=== PATIENT | female | born 1965 | race Caucasian/White ===

== ENCOUNTER 2018-11-23 01:10 | Inpatient (IN) | payer OTHER ==
[~2018-11-23] VITALS: Ht 182.9 cm; Wt 161.0 kg
[2018-11-23] VITALS (9 sets, daily range): BP systolic 105–148; BP diastolic 54–70
[~2018-11-23 01:10] MED LIST: ABILIFY 5 MG TAB5 M1 PO; ABILIFY PO; ABILIFY15 MG PO; ACETAMINOPHEN325 M1 PO; ACID CONTROL20 MG PO; ADVAIR 500-501 EACH; ADVAIR 500-501 EACH IH; ADVAIR 500-501 EACH INH; ALBUTEROL S5 MG/1 ML IH; ALBUTEROL2.5 MG/0.1; ALBUTEROL2.5 MG/31 INH; ALLEGRA180 MG PO; ALPRAZOLAM 0.50.5 MG PO; AMBIEN 10 MG TA10 MG PO; ATIVAN1 MG PO; AVINZA 30 MG CA30 MG PO; AZITHROMYCIN 6600 M1 PO; BISACODYL SUPP10 MG RE; CILOSTAZOL 100100 MG PO; CLONIDINE0.1 PO; COLACE100 MG PO; COUMADIN 10MG T10 M1 PO; COUMADIN 5 MG TA5 M1 PO; COUMADIN PO; CYMBALTA30 MG PO; DAZIDOX10 MG PO; DESYREL150 MG PO; DILTIAZEM HCL60 MG PO; DULCOLAX; FLONASE 0.05%50 MCG NS; FUROSEMIDE 40 M40 M1 PO; FUROSEMIDE 80 M80 M1 PO; GLUCOPHAGE1000 MG PO; GLUCOPHAGE500 MG PO; GLYCOLAX POWDER17 G1 PO; GLYCOLAX POWDER17 GM PO; HYDROCODON-ACE1 EAC7 PO; JANTOVEN5 MG PO; K-DUR10 MEQ PO; KADIAN30 MG PO; KEPPRA1000 MG PO; KLOR-CON 10 ER10 MEQ PO; LANOXIN 0.250.25 M1 PO; LASIX 40 MG TAB40 M1 GT; LASIX 40 MG TAB40 MG PO; LASIX 80 MG TAB80 M1 PO; LEVOTHROID 00.075 M1 PO; LEVOTHROID150 MCG PO; LEVOTHROID200 MCG PO; LEVOTHYROXINE0.2 M1 PO; LIDODERM 5%1 PATC1 TOP; LOPRESSOR 12.12.5 MG PO; MACROBID 100 M100 M1 PO; MOM; MUCINEX TA600 MG/TA1 PO; NAMENDA 5 MG TAB5 M1 PO; NEURONTIN600 MG PO; NITROGLYCERIN0.4 MG SL; NITROQUICK0.4 MG SL; NYSTATIN 1100000 U/M; OXYCODONE HCL30 MG PO; OXYCODONE HCL5 M1 PO; OXYCONTIN CR 1010 M1 PO; PROAIR HFA8.5 GM IH; PROMETHAZINE HC25 M1 PO; PROTONIX40 M2 PO; PROVIGIL 100 M100 MG PO; QUETIAPINE FUM300 MG PO; SANTYL OINTMENT30 G1 TP; SENNA; SENNA PLUS 8.61 EACH PO; SENNA S TABLET1 EACH PO; SENNA-S TABLET1 EACH PO; SEROQUEL 25 MG25 MG PO; SEROQUEL 50 MG50 MG PO; SEROQUEL XR50 MG PO; SINGULAIR 10 MG10 M1 PO; SPIRIVA INH; VENTOLIN HFA INH8 GM; VENTOLIN HFA INH8 GM IH; XANAX 0.5 MG0.5 M1 PO; XANAX 0.5 MG0.5 MG PO; ZOLOFT 50 MG TA50 M1 PO; ZPAK PO; ZUPLENZ4 MG PO
[2018-11-23 01:47] LABS: ABSOLUTE NEUTROPHILS 12.2 thou/uL (1.4-8.2); BASOPHILS 0.1 % (0.0-2.0); EOSINOPHILS 0.6 % (0.0-3.0); HEMATOCRIT 34.5 % (37.0-47.0); HEMOGLOBIN 11.1 gm/dL (12.0-15.0); LYMPHOCYTES 6.2 % (24.0-44.0); MCH 27.6 pg (26.0-34.0); MCHC 32.1 g/dL (28.0-37.0); MONOCYTES 6.3 % (1.0-8.0); PLATELET COUNT 209 thou/uL (150-400); POLYS 86.8 % (36.0-66.0); RBC 4.02 mil/uL (4.20-5.00); RDW 15.2 % (10.5-14.5); WBC 14.1 thou/uL (4.0-11.0)
[2018-11-23 01:54] LABS: ANION GAP 7 mmol/L (7-16); BUN 9 mg/dL (7-18); CHLORIDE 91 mmol/L (98-107); CO2 34 mmol/L (21-32); CREATININE 0.8 mg/dL (0.6-1.0); GLUCOSE 174 mg/dL (74-106); POTASSIUM 3.6 mmol/L (3.5-5.1); SODIUM 132 mmol/L (136-145)
[2018-11-23 01:57] LABS: BE(vivo) 4.7 mmol/L (-2 to +3); PCO2 60.9 mmHg (35.0-45.0); PO2 73.6 mmHg (80.0-100.0); pH 7.338 (7.360-7.450); sO2 93.6 % (92.0-98.0)
[2018-11-23 02:01] LABS: APTT 34.6 Seconds (24.5-32.8); INR 1.1; PROTIME 11.1 Seconds (9.3-11.4)
[2018-11-23 02:04] LABS: ALBUMIN 2.9 g/dL (3.4-5.0); MAGNESIUM 1.3 mg/dL (1.8-2.4); SGOT 22 U/L (15-37); SGPT 19 U/L (30-65); TOTAL BILIRUBIN 0.4 mg/dL (<0.1-1.0); TOTAL PROTEIN 8.1 g/dL (6.4-8.2); TROPONIN-I <0.06 ng/mL (<0.06)
[2018-11-23] MEDS ORDERED: ADVAIR HFA 230M12 GM INH (05:09)
[2018-11-23] MEDS ORDERED: ASPIR 8181 MG PO (05:10)
[2018-11-23] MEDS ORDERED: SPIRONOLACTONE25 M1 PO (05:10)
[2018-11-23] MEDS ORDERED: LIORESAL 10 MG10 MG (05:12)
[2018-11-23] MEDS ORDERED: CLONAZEPAM 0.50.5 M1 PO (05:12)
[2018-11-23] MEDS ORDERED: CLONAZEPAM 1 MG1 M1 PO (05:13)
[2018-11-23] MEDS ORDERED: MULTAQ 400 MG400 MG PO (05:14)
[2018-11-23] MEDS ORDERED: LAXATIVE SUPPOS10 MG RECTAL (05:16)
[2018-11-23] MEDS ORDERED: FOLIC ACID1 MG PO (05:20)
[2018-11-23] MEDS ORDERED: ROBITUSSIN100 MG/53 PO (05:21)
[2018-11-23] MEDS ORDERED: NORCO 5-325 TA1 EAC1 PO (05:22)
[2018-11-23] MEDS ORDERED: IRON325 PO (05:24)
[2018-11-23] MEDS ORDERED: KEPPRA1000 MG PO (05:26)
[2018-11-23] MEDS ORDERED: IPRAT-ALBUT 0.5-3 ML IH (05:26)
[2018-11-23] MEDS ORDERED: LEXAPRO20 MG PO (05:27)
[2018-11-23] MEDS ORDERED: SYNTHROID25 MC1 PO (05:27)
[2018-11-23] MEDS ORDERED: MELATONIN3 MG PO (05:28)
[2018-11-23] MEDS ORDERED: CLARITIN10 MG PO (05:28)
[2018-11-23] MEDS ORDERED: LOPRESSOR25 PO (05:29)
[2018-11-23] MEDS ORDERED: MIRALAX17 GM PO (05:29)
[2018-11-23] MEDS ORDERED: MS CONTIN 30 MG30 MG PO (05:30)
[2018-11-23] MEDS ORDERED: CENTRUM SILVER1 EAC4 PO (05:30)
[2018-11-23] MEDS ORDERED: OXYBUTYNIN ER 55 M2 PO (05:31)
[2018-11-23] MEDS ORDERED: KLOR-CON20 ME1 PO (05:32)
[2018-11-23] MEDS ORDERED: PRADAXA150 MG PO (05:33)
[2018-11-23] MEDS ORDERED: PRILOSEC OTC20 MG PO (05:33)
[2018-11-23] MEDS ORDERED: LYRICA 75 MG CA75 MG PO (05:34)
[2018-11-23] MEDS ORDERED: REGLAN 10 MG TA10 MG PO (05:35)
[2018-11-23] MEDS ORDERED: SENNA PLUS TAB1 EACH PO (05:36)
[2018-11-23] MEDS ORDERED: SODIUM CHLORIDE1 G2 PO (05:37)
[2018-11-23] MEDS ORDERED: TRIGLIDE160 M1 PO (05:38)
[2018-11-23] MEDS ORDERED: ONDANSETRON HCL4 M2 PO (05:39)
[2018-11-23] MEDS ORDERED: ZYPREXA5 MG PO (05:40)
--- NOTE | 2018-11-23 06:06 | NUR ---
PT AARIVED UNIT AT ABOUT 0400. PT A/OX4, FORGETFUL AND VERY SLEEPY. VITAL SIGNS STABLE, ASSESSMENT CHARTED. ON 8L O2. ASSESSMENT DONE, ADMISSION STARTED, PT VERY SLEEPY AND COULD HARDLY STAY AWAKE TO ANSWER ADMISSION QUESTIONS. MEDICATION RECONCILLIATION DONE. FREQUENT CHECKS, FALL PRECAUTIONS MAINTAINED FOR REST OF SHIFT. WILL CONTINUE TO MONITOR.
[2018-11-23 08:08] LABS: URINE BILIRUBIN NEGATIVE (Negative); URINE BLOOD NEGATIVE (Negative); URINE CLARITY CLEAR; URINE COLOR YELLOW; URINE GLUCOSE-RANDOM* NEGATIVE (Negative); URINE KETONES NEGATIVE (Negative); URINE NITRITE-REFLEX NEGATIVE (Negative); URINE PROTEIN (DIPSTICK) NEGATIVE (Negative); URINE SPECIFIC GRAVITY <= 1.005 (1.005-1.035); URINE UROBILINOGEN 0.2 E.U./dl (0.2-1.0)
[2018-11-23 08:11] LABS: URINE LEUKOCYTES-REFLEX 1+ (Negative)
[2018-11-23 08:14] LABS: CASTS None Seen /LPF (None Seen); CRYSTALS None Seen /LPF (None Seen); SQUAMOUS 0-3 Few /LPF (0-3); URINE WBC-REFLEX 0-5 Rare /HPF (0-5)
[2018-11-23 08:15] LABS: BACTERIA-REFLEX None Seen /HPF (None Seen); URINE RBC None Seen /HPF (0-2); WBC CLUMPS Rare (None Seen)
--- NOTE | 2018-11-23 10:47 | NUR ---
CONSULTED TO PLACE A PICC FOR A PATIENT NEEDING IV ANTIBIOTICS, UNKNOWN IF IT WILL BE GEOSPATIAL INFORMATION SCIENTIST. ADMITTED WITH RESPIRATORY FAILURE AND SEPSIS. ORDER AND CONSENT NOTED. THE SALES REPRESENTATIVE [employer] OBTAINED WRITTEN CONSENT.THIS NURSE ALSO DISCUSSED THE PICC PLACEMENT WELL BENIFITS AND RISKS FOR DVT AND INFECTION WITH THE PATIENT AND SHE VERBALIZED UNDERSTANDING. THE RIGHT UPPER ARM CEPHALIC WAS WIDLEY PATENT. A #4F SINGLE LUMEN POWER PICC WAS PLACED PER HOSPITAL POLICY AFTER A BEDSIDE TIMOUT WAS COMPLETED. THE PICC WAS TRIMMED TO 50 CM AND ADVANCED WITHOUT DIFFICULTY. A STAT CHEST XRAY NOTED THE PICC TIP WAS DIFFICULT TO VISUALIZE AND SUGGESTED REPOSITIONING THE PICC. PICC WITHDREW 2CM SUGGESTED AND A 2ND CHEST XRAY WAS OBTAINED FOR TIP VERIFICATION
--- NOTE | 2018-11-23 16:48 | NUR ---
PT CARE ASSUMED APPROX 0700. PT DROWSY BUT ORIENTTED X4. REPORTS SOA AND PAIN. PAIN IS CHRONIC TO LOWER BACK. PT ALWAYS RATES PAIN 10/10 WITH ZERO RELIEF. REPORTS SOA AT THIS TIME AND RECEIVING PRN BREATHING TREATMENT. WILL F/U. PT ALSO REPORTS CHEST DISCOMFORT THAT WORSENS WITH DEEP BREATHING. PT EDUCATED ON PNEUMONIA DISEASE PROCESS AND SYMPTOMS THAT ACCOMPANY THAT DIAGNOSIS. DR LOVE NOTIFIED. VSS. BS WNL. PT REPORTS TO NURSING THAT SHE HAS A H/O CHF. THIS IS NOT NOTED TO H&P. DR LOVE NOTIFIED OF THAT WELL SINCE PT REPORTS SOA. IVF AND MULTIPLE IV ABX REMAINS TO POC. DR LOVE GAVE ORDERS TO STOP IVF AND CHECK XRAY IN AM. PT HAS NOT MOBILIZED THIS SHIFT. SLEPT MOST OF DAY. SHE HAS BEEN EASILY AROUSABLE. DROWSINESS MOST LIKEY DUE TO IV MORPHINE MANAGING PAIN PRIOR TO HOME MEDS BEING ORDERED. WILL F/U PT FOR EFFECTIVENESS OF BREATHING TREATMENT. CLINICALLY STABLE AT THIS TIME.
[2018-11-24] VITALS (7 sets, daily range): BP systolic 105–121; BP diastolic 61–69
[2018-11-24 06:04] LABS: HEMATOCRIT 30.6 % (37.0-47.0); HEMOGLOBIN 9.9 gm/dL (12.0-15.0); MCH 27.8 pg (26.0-34.0); MCHC 32.4 g/dL (28.0-37.0); MCV 85.6 fL (80.0-100.0); RBC 3.58 mil/uL (4.20-5.00)
[2018-11-24 06:17] LABS: ANION GAP 4 mmol/L (7-16); BUN 9 mg/dL (7-18); CHLORIDE 101 mmol/L (98-107); CO2 35 mmol/L (21-32); CREATININE 0.8 mg/dL (0.6-1.0); GLUCOSE 110 mg/dL (74-106); POTASSIUM 4.6 mmol/L (3.5-5.1); SODIUM 140 mmol/L (136-145); TROPONIN-I <0.06 ng/mL (<0.06)
--- NOTE | 2018-11-24 06:24 | NUR ---
PT RESTING IN BED. HAS BEEN SLEEPING MAJORITY OF NIGHT, DROWSY BUT ARROUSABLE. PT STATED THAT SHE HASN'T SLEPT IN LIKE TWO DAYS. PT REMAINS ON 5L NC. PT C/O CHRONIC PAIN GETTING SCHEDULED PAIN MEDS WELL PRN. PT SR W/1ST AVB. AM LABS PENDING REVIEW.
--- NOTE | 2018-11-24 14:55 | HC ---
[facility] [place] [address] [place] [address] CONSULTATION Name: SABRINA RICKS Room #: 215-P ADM IN M.R.#: [id number] Admission: 11/23/18 Attend Phys: Maricarmen Rosas Discharge: Date of : 61 Report #: [id number] THIS REPORT FOR: //name// CC: FAM unknown Maricarmen Rosas PULMONARY CONSULTATION REFERRING PHYSICIAN: Dr. Rosas. REASON FOR REFERRAL: Hypoxia, possible pneumonia. HISTORY OF PRESENT ILLNESS: The patient is a 53-year-old white female who was brought to the ED with coughing, hypoxia. She was admitted for possible pneumonia. The patient is a resident of the [facility]. She was in her usual state of health until the day prior to presentation where she has complained of cough, desaturation. Because of hypoxia, the patient was brought to the ED. Chest x-ray shows increasing possible left hilar, upper lobe infiltrates. The patient was admitted for pneumonia. She is not a good historian. She is somewhat drowsy, arousable. She denies any recent chest pain, productive cough, night sweats or chills. PAST MEDICAL HISTORY: Notable for COPD, chronic bronchitis, anemia, history of dysrhythmias, chronic pain, on chronic narcotics, seizure disorder, depression, peptic ulcer disease, chronic kidney disease, diabetes mellitus, history of depression, and hypothyroidism. PAST SURGICAL HISTORY: Status post right BKA. ALLERGIES: AMINOGLYCOSIDE, CLINDAMYCIN, PENICILLIN, VANCOMYCIN, FLUOROQUINOLONES, reactions not specified. MEDICATIONS: List from the jail are reviewed, is in the MAR. This include hydrocodone 5/325 mg every 12 hours p.r.n., Tylenol p.r.n., Coumadin 5 mg once a day, Seroquel XR 50 mg once a day, Zoloft 50 mg once a day, Synthroid 0.2 mg once a day, Protonix 40 mg once a day, quetiapine fumarate 300 mg p.o. at bedtime, Advair 500/50 mcg one puff twice a day, cilostazol 100 mg p.o. b.i.d., Pepcid 20 mg p.o. b.i.d., Keppra 1000 mg p.o. b.i.d., metoprolol 12.5 mg p.o. b.i.d., Namenda 5 mg p.o. b.i.d., Neurontin 600 mg p.o. t.i.d., Colace, DuoNeb q. 6 hours, Zuplenz 4 mg p.o. t.i.d. p.r.n., albuterol MDI, and nystatin. FAMILY HISTORY: Noncontributory. [facility] [address] [place] [address] CONSULTATION Name: SABRINA RICKS Room #: 215-P ADM IN M.R.#: [id number] Admission: 11/23/18 Attend Phys: Maricarmen Rosas Discharge: Date of : 61 Report #: [id number] SOCIAL HISTORY: A [facility] jail. No recent tobacco or alcohol use. REVIEW OF SYSTEMS: Deferred as the patient is not able to answer questions at this time due to hypersomnolence. PHYSICAL EXAMINATION: GENERAL: She is arousable, in no distress. VITAL SIGNS: Temperature is 98 degrees Fahrenheit, pulse is 90, respiratory rate is 14, blood pressure 114/54 mmHg, saturation is 96%. HEENT: Normocephalic, atraumatic. NECK: Supple, without any lymphadenopathy or thyromegaly. CHEST: Breath sounds are distant, poor effort, no obvious rales or wheezes, air movements are decreased. CARDIOVASCULAR: Normal S1, S2. There are no murmurs or gallop. Pulses are 2+/4+ bilaterally. BREASTS: Deferred. ABDOMEN: Obese, soft, nontender, no organomegaly or masses felt. GENITOURINARY: Deferred. RECTAL: Deferred. EXTREMITIES: No cyanosis, clubbing; 1+ bilateral edema. LABORATORY DATA: Portable chest x-ray shows prominence of the left hilum, questionable left upper lobe infiltrates, left hemidiaphragm is elevated, lung volumes are decreased, increased pulmonary vascular markings. C-reactive proteins is 186. Troponin is normal. UA was unremarkable. Arterial blood gas revealed pH of 7.33, pCO2 of 60, pO2 of 73 on 6 liters of O2. Sodium 132, potassium 3.6, chloride 91, CO2 is 34, creatinine is 0.8. Liver function tests are grossly unremarkable. WBC 14,100. IMPRESSION: 1. History of chronic obstructive pulmonary disease, severity unknown, history of chronic bronchitis. 2. Prominent left hilum? Poor technique. The patient will need followup chest x-ray. If still abnormal, she will need a CT chest. 3. Morbid obesity, no past history of sleep-related breathing disorder. The patient does have risk for sleep apnea. Arterial blood gas also suggests chronic hypercapnic respiratory failure. Sleep evaluation is recommended when she is stable as an outpatient. 4. Chronic hypercapnic respiratory failure. She has been on 6 liters of O2. Etiology is not well defined, probably due to underlying chronic obstructive pulmonary disease, hypoventilation syndrome related to obesity, possibly related to obesity hypoventilation syndrome. 5. Chronic pain, on chronic narcotics, which is likely contributing to hypoventilation. [facility] [address] [place] [address] CONSULTATION Name: SABRINA RICKS Maria Del Carmen Room #: 215-P ADM IN M.R.#: [id number] Admission: 11/23/18 Attend Phys: Maricarmen Rosas Discharge: Date of : 61 Report #: [id number] 6. Seizure disorder. 7. History of depression. 8. Chronic kidney disease. 9. Chronic anticoagulation? Medication list Coumadin. RECOMMENDATION: Would recommend broad-spectrum antibiotics to cover for nosocomial infections. Infectious Disease has been consulted. We will continue bronchodilator therapy. Wean O2 for saturation 88-90%, given chronic hypercapnia. DVT and GI prophylaxis is recommended. She is already on Coumadin, reasons not specified. Dietary modification will be helpful in this patient. Thank you for this consultation. <ELECTRONICALLY SIGNED> By: Jose Tom MD 11/24/18 1455 1429 0142 Jose Tom MD /nt
--- NOTE | 2018-11-24 14:55 | HC ---
[facility] [place] [place] [address] [place] [address] CONSULTATION Name: SABRINA RICKS Room #: 215-P ADM IN M.R.#: [id number] Admission: 11/23/18 Attend Phys: Maricarmen Rosas Discharge: Date of : 61 Report #: [id number] THIS REPORT FOR: //name// CC: FAM unknown Maricarmen Rosas PULMONARY CONSULTATION REFERRING PHYSICIAN: Dr. Rosas. REASON FOR REFERRAL: Hypoxia. HISTORY OF PRESENT ILLNESS: The patient is a 53-year-old white female who was brought to the ED with hypoxia and cough. She has been admitted for possible pneumonia. A Pulmonary consultation was requested. The patient is a resident at the [facility]. She was in her usual state of health until one day prior to presentation, she complained of cough. She is normally on 6 liters of O2. She was noted to be more hypoxic than normal. For that reason, she was brought to the ED. Chest x-rays suggest possible infiltrates seen in the left upper lobe. The left hilum appears to be prominent. Presently, she is somnolent, arousable, not able to obtain good history. Otherwise, denies any recent chest pain, productive cough, night sweats or chills. PAST MEDICAL HISTORY: Include chronic pain, COPD, seizure disorder, depression, peptic ulcer disease, history of chronic kidney disease, diabetes mellitus type 2, hypothyroidism, anemia, history of dysrhythmias, status post right [id number] amputation. PAST SURGICAL HISTORY: As mentioned above. ALLERGIES: AMINOGLYCOSIDES, CLINDAMYCIN, PENICILLIN, VANCOMYCIN, MOXIFLOXACIN, REACTIONS UNSPECIFIED. MEDICATIONS: From the assisted are reviewed, this include Tylenol, hydrocodone 5/325 one to two tabs p.r.n., lorazepam 1 mg p.o. t.i.d., Coumadin 5 mg once a day. [facility] [address] [place] [address] CONSULTATION Name: SABRINA RICKS Room #: 215-P [facility] IN ..#: [id number] Admission: 11/23/18 Attend Phys: Maricarmen Rosas Discharge: Date of : 61 Report #: [id number] DICTATION ENDS HERE <ELECTRONICALLY SIGNED> By: Jose Tom MD 11/24/18 1455 1359 [id number] Jose Tom MD /nt
--- NOTE | 2018-11-24 16:19 | NUR ---
PT CARE ASSUMED APPROX 0700. PT ALERT AND ORIENTED X4. SLEEPING MOST OF SHIFT BUT EASILY AROUSABLE. VSS. BS WNL. TURNING Q2 HRS AND PRN. PT DENIES CHEST PAIN THIS SHIFT. CONTINUES TO REPORTS GEN PAIN -11/02. PT REPORTS ADEQUATE PAIN MANAGEMENT WITH CURRENT MEDS. CHRONIC SELBY PATENT. NO BM THIS SHIFT. LASIX GIVEN AND PT REPORTS GEN RELIEF. DENIES SOA. IV ABT REMAINS TO POC. PT TOLERATING POC AND DENIES QUESTIONS OR CONCERNS REGARDING POC. BED LEVEL EXERCISES DONE. NO DISTRESS NOTED.
[2018-11-25 00:35] VITALS: BP 126/64
--- NOTE | 2018-11-25 02:14 | NUR ---
ASSESSMENT CHARTED. VSS. PAIN CONTROLED WITH PRN AND SCHEDULED PAIN MEDS PER EMAR. 5 L N/C PRN BREATHING TREATMENTS LUNGS COARSE. ABX PER EMAR. PT REQUESTED PRN MELATONIN FOR SLEEP. SLEEPING WELL AT THIS TIME. WILL CONTINUE TO MONITOR AND WITH POC.
[2018-11-25 04:18] VITALS: BP 123/61
[2018-11-25 04:31] LABS: ABSOLUTE NEUTROPHILS 3.8 thou/uL (1.4-8.2); BASOPHILS 0.5 % (0.0-2.0); HEMATOCRIT 30.8 % (37.0-47.0); HEMOGLOBIN 10.1 gm/dL (12.0-15.0); LYMPHOCYTES 16.2 % (24.0-44.0); MCH 28.3 pg (26.0-34.0); MCHC 32.8 g/dL (28.0-37.0); MCV 86.3 fL (80.0-100.0); MONOCYTES 11.7 % (1.0-8.0); PLATELET COUNT 214 thou/uL (150-400); POLYS 66.6 % (36.0-66.0); RBC 3.57 mil/uL (4.20-5.00); RDW 14.9 % (10.5-14.5); WBC 5.8 thou/uL (4.0-11.0)
[2018-11-25 04:38] LABS: CALCIUM 9.4 mg/dL (8.5-10.1); CREATININE 0.8 mg/dL (0.6-1.0); POTASSIUM 4.5 mmol/L (3.5-5.1)
[2018-11-25 07:56] VITALS: BP 122/71
[2018-11-25 11:08] VITALS: BP 153/88
[2018-11-25 15:57] VITALS: BP 117/63
--- NOTE | 2018-11-25 17:17 | NUR ---
PT CARE ASSUMED APPROX 0700. PT DROWSY AND SLEEPS MOST OF SHIFT BUT EASILY AROUSABLE AND ORIENTEDX4. DENIES SOA. REPORTS 7-8 CHRONIC GEN PAIN. REPORTS ADEQUATE PAIN MANAGEMENT. VSS. BS WNL. AGREEABLE TO TURNING IN BED TWICE THIS SHIFT BUT ONLY STAYS IN TURN POSITION FOR SHORT TIME. PT EDUCATED ON POSSIBLE OUTCOMES OF NOT TURNING. PT REPORTS UNDERSTANDING SAID EDUCATION. NO CHANGES NOTED TO POC. PT TOLERATING POC. BED LEVEL EXERCISES DONE PERIODICALLY THIS SHIFT SINCE PT IS BEDBOUND. NO DISTRESS NOTED.
[2018-11-25 19:58] VITALS: BP 133/73
--- NOTE | 2018-11-26 03:46 | NUR ---
ASSESSMENT CHARTED. VSS. PT REQUEST PRN MELTONIN AND BACLOFEN PER EMAR. REFUSING Q2 TURNS STATED WILL LET ME KNOW WHEN SHE NEEDS HELP. 4 L NC. COARSE THROUGHOUT, SAME COMPARED TO PREVIOUS NIGHT. GOOD OUTPUT SELBY. SLEEPING WELL. NO COMPLAINTS. WILL CONTINUE TO MONITOR AND WITH POC.
[2018-11-26 04:01] VITALS: BP 128/70
[2018-11-26 07:42] VITALS: BP 108/73
--- NOTE | 2018-11-26 07:57 | EKG ---
[address] [address] ELECTROCARDIOGRAM REPORT Name: SABRINA RICKS Room #: 215-P ADM IN M.R.#: [id number] Admission: 11/23/18 Attend Phys: Hiren Huynh MD Discharge: Date of : 61 Report #: [id number] THIS REPORT FOR: //name// [facility] ED Test Date: 2018-11-23 Test Time: 01:14:52 Pat Name: SABRINA RICKS Department: Room: [facility] Gender: F Sprinkler Repair Technician: KVNG : 1965 Requested By: Calvin Zelaya Order Number: [id number] MD: Ramon Oshea Measurements Intervals [place] Rate: 145 P: 0 AR: 118 QRS: 78 QRSD: 103 T: 263 QT: 281 QTc: 437 Interpretive Statements Supraventricular tachycardia Repol abnrm, diffuse leads No previous ECGs available for comparison Electronically Signed On 11-26-2018 7:57:43 CDT by Ramon Oshea [email or web address] <ELECTRONICALLY SIGNED> By: Ramon Oshea MD, [facility] 11/26/18 0757 0114 0114 Ramon Oshea MD, FACC /EPI
[2018-11-26 09:24] LABS: ABSOLUTE NEUTROPHILS 3.1 thou/uL (1.4-8.2); BASOPHILS 0.8 % (0.0-2.0); EOSINOPHILS 5.7 % (0.0-3.0); HEMOGLOBIN 11.9 gm/dL (12.0-15.0); LYMPHOCYTES 18.1 % (24.0-44.0); MCH 29.2 pg (26.0-34.0); MCHC 34.1 g/dL (28.0-37.0); MCV 85.6 fL (80.0-100.0); MONOCYTES 10.5 % (1.0-8.0); PLATELET COUNT 235 thou/uL (150-400); POLYS 64.9 % (36.0-66.0); RBC 4.09 mil/uL (4.20-5.00); RDW 14.6 % (10.5-14.5); WBC 4.8 thou/uL (4.0-11.0)
[2018-11-26 09:37] LABS: CALCIUM 10.1 mg/dL (8.5-10.1); CREATININE 0.8 mg/dL (0.6-1.0); POTASSIUM 4.4 mmol/L (3.5-5.1)
[2018-11-26 12:11] VITALS: BP 131/72
[2018-11-26 12:35] LABS: BE(vivo) 11.4 mmol/L (-2 to +3); PO2 92.1 mmHg (80.0-100.0); pH 7.375 (7.360-7.450); sO2 96.6 % (92.0-98.0)
[2018-11-26 12:38] LABS: PCO2 68.2 mmHg (35.0-45.0)
--- NOTE | 2018-11-26 12:57 | 2DMMODE ---
[facility] [address] [place] [address] 2 D/M-MODE ECHOCARDIOGRAM Name: SABRINA RICKS Maria Del Carmen Room #: 215-P ADM IN .R.#: [id number] Admission: 11/23/18 Attend Phys: Hiren Huynh MD Discharge: Date of : 61 Date of Service: 11/26/18 1257 Report #: [id number] THIS REPORT FOR: //name// APPROVED REPORT Study performed: 11/26/2018 10:31:55 EXAM: Comprehensive 2D, Doppler, and color-flow Echocardiogram Patient Location: Bedside Room #: 215 Status: routine BSA: 2.74 HR: 91 bpm BP: 128/70 mmHg Rhythm: NSR Other Information Study Quality: Adequate Risk Factors: Cardiac Risk Factors: Hyperlipidemia, DM Indications COPD Chest Pain 2D Dimensions IVSd: 14.16 (7-11mm) LVOT Diam: 21.00 (18-24mm) LVDd: 47.27 mm PWd: 11.82 (7-11mm) Ascending Ao: 32.96 (22-36mm) LVDs: 37.82 (25-40mm) Aortic Root: 35.70 mm LV Single Plane 4CH: 44.55 % LV Single Plane 2CH: 43.03 % Biplane EF: 45.4 % Volumes Left Atrial Volume (Systole) Single Plane 4CH: 76.23 mL Single Plane 2CH: 58.90 mL LA ESV Index: 34.00 mL/m2 Aortic Valve AoV Peak Stephen.: 1.17 m/s AO Peak Gr.: 5.52 mmHg LVOT Max P.04 mmHg LVOT Max V: 0.87 m/s [facility] [address] [place] [address] 2 D/M-MODE ECHOCARDIOGRAM Name: SABRINA RICKS Maria Del Carmen Room #: 215-P [facility] [facility]#: [id number] Admission: 11/23/18 Attend Phys: Hiren Huynh MD Discharge: Date of : 61 Date of Service: 11/26/18 1257 Report #: [id number] ANASTASIA Vmax: 2.61 cm2 Mitral Valve E/A Ratio: 0.8 MV Decel. Time: 146.13 ms MV E Max Stephen.: 1.08 m/s MV A Stephen.: 1.38 m/s MV PHT: 42.38 ms IVRT: 76.12 ms TDI E/Lateral E': 12.00 E/Medial E': 18.00 Medial E' Stephen.: 0.06 m/s Lateral E' Stephen.: 0.09 m/s Pulmonary Valve PV Peak Stephen.: 1.03 m/s PV Peak Gr.: 4.27 mmHg Tricuspid Valve TR Peak Stephen.: 2.39 m/s RAP Estimate: 10.00 mmHg TR Peak Gr.: 22.79 mmHg PA Pressure: 33.00 mmHg Left Ventricle The left ventricle is normal size. Mild concentric left ventricular hypertrophy. Left ventricular systolic function is mildly decreased. LVEF is 45%. Mild diastolic dysfunction is present (impaired relaxation pattern). Right Ventricle Right ventricle is dilated. Atria The left atrium size is normal. Right atrium is dilated. Aortic Valve The aortic valve is normal in structure. No aortic regurgitation is present. There is no aortic valvular stenosis. Mitral Valve Mild mitral regurgitation. No evidence of mitral valve stenosis. Tricuspid Valve The tricuspid valve is normal in structure. Mild tricuspid regurgitation. Pulmonary artery pressure is 33 mmHg. [facility] [address] [place] [address] 2 D/M-MODE ECHOCARDIOGRAM Name: SABRINA RICKS Room #: 215-P ADM IN .R.#: [id number] Admission: 11/23/18 Attend Phys: Hiren Huynh MD Discharge: Date of : 61 Date of Service: 11/26/18 1257 Report #: [id number] Pulmonic Valve The pulmonary valve is normal in structure. Mild pulmonic regurgitation. Great Vessels The aortic root is normal in size. The ascending aorta is normal in size. IVC is dilated and collapses >50% with inspiration. Pericardium There is no pericardial effusion. <Conclusion> The left ventricle is normal size. Mild concentric left ventricular hypertrophy. Left ventricular systolic function is mildly decreased. Mild diastolic dysfunction is present (impaired relaxation pattern). Right ventricle is dilated. The left atrium size is normal. Right atrium is dilated. The aortic valve is normal in structure. Mild mitral regurgitation. Mild tricuspid regurgitation. Pulmonary artery pressure is 33 mmHg. <ELECTRONICALLY SIGNED> By: Neel Whiet MD 11/26/18 1257 1257 1257 Neel White MD /INF
--- NOTE | 2018-11-26 13:25 | NUR ---
Nutrition: Pt assessed d/t high BMI 49 kg/m2 (class III- high risk obesity). Here for sepsis, healthcare associated pneumonia, respiratory failure. [facility] at [facility]. Hx COPD with R AKA. Pt on a regular diet eating 80-100% of meals (95% meal average x 3 days). Pt interested in losing wt and wt loss education from RD today. Spent 20 mins in education on smarter portion sizes, how to separate plate into different food groups and how to cut calories without necessarily eliminating choices (as this was very important to pt). She just moved into [facility] a few days ago and states she is able to customize meals which will help. Numerous handouts given with example 1500 kcal menus. Low nutrition risk.
[2018-11-26 16:44] VITALS: BP 120/62
--- NOTE | 2018-11-26 17:40 | NUR ---
[facility] PT A&O X4. ASSESSMENT CHARTED. FALL PRECAUTIONS IN PLACE. PT STATED SHE CONTINUED TO HAVE CHRONIC PAIN. PT RECEIVED SCHEDULED ANALGESICS TO HELP RELIEVE PAIN. PT STATED ANALGESICS DID HELP. VITAL SIGNS ARE STABLE. BLOOD SUGARS ARE STABLE. PT HAD ECHO TODAY. PT RECIEVING SCHEDULED RT BREATHING TREATMENTS. PT STATED SHE WAS SOB. PT DENIED WANTING PRN BREATHING AND FELT BETTER. PT'S O2 SATS ARE STABLE. PT IS CONTINUING DIURESING TX. PT RECIEVED A NEW URINARY CATH. PT DENIES HAVING ANY CONCERNS OR QUESTIONS AT THIS POINT. PT RESTING COMFORTABLY IN BED.
--- NOTE | 2018-11-26 18:43 | NUR ---
INSERTED NEW URINARY CATH. D/C URINARY CATH PT CAME WITH FROM HALFWAY. VERBAL ORDER VIA DR. LOVE.
[2018-11-26 19:44] VITALS: BP 123/86
--- NOTE | 2018-11-27 03:53 | NUR ---
ASSESSMENT CHARTED. VSS. PT PAIN CONTROLED WITH PRN AND SCHEDULED PAIN MEDS PER EMAR. 4 L N/C COARSE BUT IMPROVED FROM PREVIOUIS NIGHT. GOOD OUTPUT URINARY CATH. REFUSING Q2 TURNS. SLEEPING WELL. PLAN FOR LABS THIS AM WILL CONTINUE TO MONITOR AND WITH POC.
[2018-11-27 04:30] VITALS: BP 122/62
[2018-11-27 04:38] LABS: CALCIUM 9.4 mg/dL (8.5-10.1); CREATININE 0.8 mg/dL (0.6-1.0); POTASSIUM 3.9 mmol/L (3.5-5.1)
[2018-11-27 04:41] LABS: HEMATOCRIT 32.4 % (37.0-47.0); HEMOGLOBIN 10.5 gm/dL (12.0-15.0); MCH 27.9 pg (26.0-34.0); MCHC 32.3 g/dL (28.0-37.0); MCV 86.2 fL (80.0-100.0); RBC 3.76 mil/uL (4.20-5.00); RDW 14.4 % (10.5-14.5); WBC 5.3 thou/uL (4.0-11.0)
[2018-11-27 08:00] VITALS: BP 128/78
[2018-11-27 12:05] VITALS: BP 140/75
[2018-11-27 12:07] VITALS: BP 101/63
--- NOTE | 2018-11-27 12:25 | NUR ---
Met with patient and Yessica admissions liason with OG at bedside. Patient admitted to [facility] on Sunday from another facility [facility] in [facility]. Angela nicole with plan to close. Patient A/Ox4. Plan to return to [facility] at dc. [facility] can accomadate skilled care and IC antibiotics if needed at dc. Patient reports her mother lives in [place] and likely visiting today. faxed updated information at [facility].
--- NOTE | 2018-11-27 15:40 | NUR ---
[place] CLIN[place] [facility] [place]POKE WITH LESLIE IN ADM SHE RECEIVED UPDATE. DCP TO FOLLOW.
--- NOTE | 2018-11-27 16:15 | NUR ---
ASSUMMED PT CARE AT [facility] 0700. PT A&O X4. ASSESSMENT CHARTED. FALL PRECAUTIONS IN PLACE. PT'S VITAL SIGNS HAVE BEEN STABLE. PT'S BLOOD SUGARS HAVE BEEN STABLE. PT'S HAS CHRONIC PAIN. PT HAS BEEN RECEIVING ANALGESICS FOR CHRONIC PAIN. PT STATED ANALGESICS HAVE HELPED CHRONIC PAIN. PT RECEIVING IV ABX. PT RECEIVED A TOTAL BATH. PT STATED SHE HAS NOT HAD CHEST PAIN. PT STATED SHE HAS NOT BEEN SOB. PT DENIES AND FURTHER CONCERNS OR QUESTIONS. CONTINUING TO FOLLOW POC.
[2018-11-27 16:50] VITALS: BP 105/91
--- NOTE | 2018-11-27 18:14 | NUR ---
NOTICED MINIMAL BLEEDING COMING FROM URINARY CATH SITE. NOT CONCERNED AT THE MOMENT. WILL CONTINUE TO MONITOR. NOTIFYING NIGHT NURSE TO CONTINUE TO FOLLOW UP AND MONITOR.
--- NOTE | 2018-11-27 18:45 | NUR ---
RECOMMENDED PT TO TURN Q2 HOURS. PT SELF TURNS AND MOVES.
[2018-11-27] MEDS ORDERED: ADVAIR 250-501 EACH INH (19:09)
[2018-11-27] MEDS ORDERED: FLONASE 0.05%50 MCG NASAL (19:10)
[2018-11-27 20:04] VITALS: BP 120/56
--- NOTE | 2018-11-28 03:09 | NUR ---
ASSESSMENT DOCUMENTED.PT BEEN RESTING IN NO ACUTE DISTRESS.A/OX4.VSS.ON O2 PNC,NO RESP DISTRESS NOTED.CHRONIC KNEE PAIN.CONTROLLED WITH SCHEDULED AND PRN PAIN.POSSIBLE DISCHARGE TODAY TO SNF.
[2018-11-28 05:32] VITALS: BP 130/60
[2018-11-28 08:22] VITALS: BP 131/88
[2018-11-28] MEDS ORDERED: MUCINEX600 MG PO (11:00)
[2018-11-28] MEDS ORDERED: SODIUM CHLORIDE1 G2 PO (11:02)
[2018-11-28 14:30] LABS: HEMATOCRIT 33.6 % (37.0-47.0); HEMOGLOBIN 10.7 gm/dL (12.0-15.0); MCH 27.6 pg (26.0-34.0); MCHC 31.8 g/dL (28.0-37.0); MCV 86.7 fL (80.0-100.0); RBC 3.88 mil/uL (4.20-5.00); RDW 14.2 % (10.5-14.5); WBC 3.8 thou/uL (4.0-11.0)
[2018-11-28 14:38] LABS: ANION GAP < 0 mmol/L (7-16); BUN 12 mg/dL (7-18); CALCIUM 9.3 mg/dL (8.5-10.1); CHLORIDE 95 mmol/L (98-107); CO2 42 mmol/L (21-32); CREATININE 0.8 mg/dL (0.6-1.0); GLUCOSE 143 mg/dL (74-106); MAGNESIUM 1.5 mg/dL (1.8-2.4); POTASSIUM 4.1 mmol/L (3.5-5.1); SODIUM 135 mmol/L (136-145)
[2018-11-28 16:54] VITALS: BP 83/49
[2018-11-28 19:31] VITALS: BP 115/49
--- NOTE | 2018-11-29 02:35 | NUR ---
ASSESSMENT DOCUMENTED.PT BEEN RESING IN NO ACUTE DISTRESS.A/OX4.SR.PAIN MEDS GIVEN PER PT REQUEST AND PER ORDERS W/RELIEF.NO CONCERNS VOICED.POSSIBLE DISCHARGE TODAY TO SNF.
[2018-11-29 04:45] VITALS: BP 117/69
[2018-11-29 07:42] VITALS: BP 120/43
[2018-11-29 12:50] VITALS: BP 137/63
[2018-11-29] MEDS ORDERED: ALBUTEROL2.5 MG/31 INH (13:22)
[2018-11-29] MEDS ORDERED: LASIX 20 MG TAB20 MG PO ×2 (13:22→13:25)
[2018-11-29] MEDS ORDERED: NEURONTIN600 MG PO (13:22)
[2018-11-29] MEDS ORDERED: DOXYCYCLINE HYC50 MG PO (13:22)
--- NOTE | 2018-11-29 17:18 | NUR ---
ASSUMMED PT CARE AT [facility] 0700. PT A&O X4. ASSESSMENT CHARTED. FALL PRECAUTIONS IN PLACE. PT'S VITAL SIGNS STABLE. PT'S BLOOD SUGARS STABLE. PT DENIES HAVING CHEST PAIN. PT DENIES HAVING SOB. PT STATED SHE HAS CHRONIC BACK AND LL KNEE PAIN. PT RECIEVED ANALGESICS FOR PAIN. PT STATED THE ANALGESICS HELPED DECREASE PAIN. TITRATED PT'S O2 DOWN TO [address] GOETZ. PT'S O2 SAT REMAINED STABLE. PT DENIED SOB. PT DISCHARGING TO HER SNF [facility] IN [place]. PT RECIEVED DISCHARGE EDUCATION AND INFORMATION. PT STATED UNDERSTANDING OF EDUCATION AND INFORMATION, DENIED HAVING FURTHER QUESTIONS. REPORT GIVEN TO [facility] PRIOR TO DISCHARGE- SEE DISCHARGE ASSESSMENT INFORMATION. RN AT [facility] DENIED HAVING FURTHER QUESTIONS REGARDING TO REPORT. PICC LINE D/C. TELE PACK REMOVED. PT TRANSPORTED BY [facility]. PT'S BELONGING AND H&P WITH PT. PT LEAVING COMFORTABLY IN BED WITH 2 L NC.
--- NOTE | 2018-11-29 17:42 | NUR ---
PT DISCHARGING TODAY TO [facility] FAXED DC ORDERS/SUMMARY TO FACILITY MARSHALL NELSON IN ADM AND SHE ARRANGED TRANSPORTATION BY STRETCHER VAN FOR [id number]. NOTIFIED PT'S FAMILY OF DC AND TIME OF TRANSPORT. UNIT NOTIFIED AND CHART COPY PER US. CASE CLOSED
--- NOTE | 2018-11-29 17:44 | NUR ---
Pt dc'd back to snf today at [facility] of . They arranged stretcher van pickup. All parties updated. Pt agreeable to the dc plan.
--- NOTE | 2018-11-29 18:13 | NUR ---
RECOMMENDED PT TO Q2 TURNS. PT TURNS HERSELF AND MOVES IN BED.
== END 2018-11-29 17:11 | DRG 871 ==
LOC: ER 01:10 → 2N 02:37 → EROBS 02:37 → 2N 03:32
PROVIDERS: Emergency Medicine; Internal Medicine; Internal Medicine Pulmonary Disease; Nurse Practitioner Family; Pediatrics; ADMIT Hospitalist
PROC: 02H633Z Insertion of Infusion Device into Right Atrium, Percutaneous Approach (ICD-10-PCS; principal; 2018-11-23)
DX: A41.9 Sepsis, unspecified organism (principal); J96.21 Acute and chronic respiratory failure with hypoxia; J96.22 Acute and chronic respiratory failure with hypercapnia; J18.1 Lobar pneumonia, unspecified organism; I50.43 Acute on chronic combined systolic (congestive) and diastolic (congestive) heart failure; F11.20 Opioid dependence, uncomplicated; E87.1 Hypo-osmolality and hyponatremia; D68.59 Other primary thrombophilia; Z68.42 Body mass index [BMI] 45.0-49.9, adult; I13.0 Hypertensive heart and chronic kidney disease with heart failure and stage 1 through stage 4 chronic kidney disease, or unspecified chronic kidney disease; J44.0 Chronic obstructive pulmonary disease with (acute) lower respiratory infection; N18.9 Chronic kidney disease, unspecified; E11.22 Type 2 diabetes mellitus with diabetic chronic kidney disease; E03.9 Hypothyroidism, unspecified; Y95 Nosocomial condition; F32.9 Major depressive disorder, single episode, unspecified; E11.65 Type 2 diabetes mellitus with hyperglycemia; E88.09 Other disorders of plasma-protein metabolism, not elsewhere classified; E66.01 Morbid (severe) obesity due to excess calories; E83.42 Hypomagnesemia; D64.9 Anemia, unspecified; T50.2X5A Adverse effect of carbonic-anhydrase inhibitors, benzothiadiazides and other diuretics, initial encounter; G47.33 Obstructive sleep apnea (adult) (pediatric); G89.29 Other chronic pain; G40.909 Epilepsy, unspecified, not intractable, without status epilepticus; Z88.1 Allergy status to other antibiotic agents; Z88.0 Allergy status to penicillin; Z88.8 Allergy status to other drugs, medicaments and biological substances; Z87.11 Personal history of peptic ulcer disease; Z89.511 Acquired absence of right leg below knee; Y92.89 Other specified places as the place of occurrence of the external cause; Z79.01 Long term (current) use of anticoagulants; Z89.512 Acquired absence of left leg below knee; Z74.01 Bed confinement status; Z89.612 Acquired absence of left leg above knee
CPT/HCPCS: 10081; 27000

== ENCOUNTER 2018-12-16 23:34 | Inpatient (IN) | payer OTHER ==
[~2018-12-16] VITALS: Ht 182.9 cm; Wt 165.6 kg
[~2018-12-16 23:34] MED LIST changes: +ADVAIR 250-501 EACH INH; +ADVAIR HFA 230M12 GM INH; +ASPIR 8181 MG PO; +CENTRUM SILVER1 EAC4 PO; +CLARITIN10 MG PO; +CLONAZEPAM 0.50.5 M1 PO; +CLONAZEPAM 1 MG1 M1 PO; +DOXYCYCLINE HYC50 MG PO; +FLONASE 0.05%50 MCG NASAL; +FOLIC ACID1 MG PO; +IPRAT-ALBUT 0.5-3 ML IH; +IRON325 PO; +KLOR-CON20 ME1 PO; +LASIX 20 MG TAB20 MG PO; +LAXATIVE SUPPOS10 MG RECTAL; +LEXAPRO20 MG PO; +LIORESAL 10 MG10 MG; +LOPRESSOR25 PO; +LYRICA 75 MG CA75 MG PO; +MELATONIN3 MG PO; +MIRALAX17 GM PO; +MS CONTIN 30 MG30 MG PO; +MUCINEX600 MG PO; +MULTAQ 400 MG400 MG PO; +NORCO 5-325 TA1 EAC1 PO; +ONDANSETRON HCL4 M2 PO; +OXYBUTYNIN ER 55 M2 PO; +PRADAXA150 MG PO; +PRILOSEC OTC20 MG PO; +REGLAN 10 MG TA10 MG PO; +ROBITUSSIN100 MG/53 PO; +SENNA PLUS TAB1 EACH PO; +SODIUM CHLORIDE1 G2 PO; +SPIRONOLACTONE25 M1 PO; +SYNTHROID25 MC1 PO; +TRIGLIDE160 M1 PO; +ZYPREXA5 MG PO
[2018-12-16 23:35] VITALS: BP 172/92
[2018-12-17] VITALS (16 sets, daily range): BP systolic 87–168; BP diastolic 48–78
[2018-12-17 00:22] LABS: ABSOLUTE NEUTROPHILS 5.9 thou/uL (1.4-8.2); BASOPHILS 0.6 % (0.0-2.0); EOSINOPHILS 1.5 % (0.0-3.0); HEMATOCRIT 35.2 % (37.0-47.0); HEMOGLOBIN 11.3 gm/dL (12.0-15.0); LYMPHOCYTES 11.9 % (24.0-44.0); MCH 27.7 pg (26.0-34.0); MCHC 32.2 g/dL (28.0-37.0); MONOCYTES 10.1 % (1.0-8.0); PLATELET COUNT 282 thou/uL (150-400); POLYS 75.9 % (36.0-66.0); RBC 4.09 mil/uL (4.20-5.00); RDW 16.2 % (10.5-14.5); WBC 7.7 thou/uL (4.0-11.0)
[2018-12-17 00:41] LABS: ANION GAP 2 mmol/L (7-16); BUN 11 mg/dL (7-18); CALCIUM 10.3 mg/dL (8.5-10.1); CHLORIDE 93 mmol/L (98-107); CO2 41 mmol/L (21-32); CREATININE 0.9 mg/dL (0.6-1.0); GLUCOSE 169 mg/dL (74-106); POTASSIUM 5.4 mmol/L (3.5-5.1); SODIUM 136 mmol/L (136-145)
[2018-12-17 00:46] LABS: BE(vivo) 15.7 mmol/L (-2 to +3); HCO3 43.2 mmol/L (22.0-26.0); PCO2 67.6 mmHg (35.0-45.0); PO2 64.9 mmHg (80.0-100.0); pH 7.423 (7.360-7.450); sO2 92.3 % (92.0-98.0)
[2018-12-17 00:52] LABS: ALBUMIN 3.1 g/dL (3.4-5.0); MAGNESIUM 1.6 mg/dL (1.8-2.4); SGOT 59 U/L (15-37); SGPT 17 U/L (30-65); TOTAL BILIRUBIN 0.6 mg/dL (<0.1-1.0); TROPONIN-I <0.06 ng/mL (<0.06)
[2018-12-17 01:07] LABS: APTT 27.1 Seconds (24.5-32.8); D-DIMER 3.42 ug/mLFEU (0.19-0.50); PROTIME 10.8 Seconds (9.3-11.4)
[2018-12-17 03:55] LABS: URINE BILIRUBIN NEGATIVE (Negative); URINE BLOOD 2+ (Negative); URINE CLARITY SL CLOUDY; URINE COLOR YELLOW; URINE GLUCOSE-RANDOM* NEGATIVE (Negative); URINE KETONES NEGATIVE (Negative); URINE NITRITE-REFLEX NEGATIVE (Negative); URINE PROTEIN (DIPSTICK) TRACE (Negative)
[2018-12-17 04:02] LABS: HCO3 37.6 mmol/L (22.0-26.0); PCO2 53.2 mmHg (35.0-45.0); pH 7.467 (7.360-7.450); sO2 99.7 % (92.0-98.0)
[2018-12-17 04:06] LABS: URINE LEUKOCYTES-REFLEX 2+ (Negative)
[2018-12-17 04:08] LABS: BACTERIA-REFLEX 1-9 Few /HPF (None Seen); CALCIUM OXALATE >10 Many /LPF (None Seen); CASTS None Seen /LPF (None Seen); MUCUS 4-6 Moderate strn/LPF (None Seen); SQUAMOUS 0-3 Few /LPF (0-3); TRANSITIONAL EPITHEL CELL 0-3 Few /LPF (None Seen)
[2018-12-17 07:17] LABS: HEMATOCRIT 31.6 % (37.0-47.0); HEMOGLOBIN 10.2 gm/dL (12.0-15.0); MCH 27.5 pg (26.0-34.0); MCHC 32.2 g/dL (28.0-37.0); MCV 85.6 fL (80.0-100.0); RBC 3.69 mil/uL (4.20-5.00); RDW 15.7 % (10.5-14.5); WBC 7.4 thou/uL (4.0-11.0)
[2018-12-17 07:27] LABS: CALCIUM 9.9 mg/dL (8.5-10.1); CREATININE 1.2 mg/dL (0.6-1.0); MAGNESIUM 1.6 mg/dL (1.8-2.4)
[2018-12-17 07:30] LABS: POTASSIUM 3.4 mmol/L (3.5-5.1)
--- NOTE | 2018-12-17 08:09 | NUR ---
RECIEVED PT FROM ER TO ICU 245. PT ALERT, FOLLOWED COMMANDS, ON PROPOFOL FOR SEDATION. VS WNL. SR/ST. SEE VENT SETTING. 02SAT WNL. MINIMAL ETT SECRETIONS. OG TO LIS-DARK BROWN, BRICK COLORED DRNG. INCONT OF THICK GREEN PASTE-LIKE STOOL. PROTONIX GTT INFUSING. SEE [employer] FOR ASSESSMENT. CONT PLAN OF CARE
--- NOTE | 2018-12-17 10:15 | NUR ---
patient admits with hemoptysis and PNA. Patient resides at [facility]. She prev resided at [facility] and moved to [facility] 11/22/18. She has hx of BKA and dependent with wc. Patient usu on 5 liters 02 at facility. She has niece Mali and Mayte who is listed is godmother. Main contact is [place]. Patient has not completed Advance directive or DPOA per facility. Updated [place] ROMANA. Patient currently intubated and sedated. [facility] following for cont plan return to [facility] once stable.
--- NOTE | 2018-12-17 10:25 | NUR ---
VASCULAR ACCESS TEAM CONSULTED FOR PICC LINE. PT'S LABS,MEDS,HISTORY,ORDER VERIFIED. SPOKE WITH DPOA ABOUT BENEFITS AND RISK OF PICC,VERBALIZED UNDERSTANDING CONSENT OBTAINED.5FR TL POWER PICC TRIMMED TO 51CM INSERTED PER HOSPITAL P&P TO 1CM EXTERNAL FIRST CXR OBTAINED, HAVING DIFFICULTY WITH BLOOD RETURN ON 2 PORTS SO WITHDREW FOR TOTAL 4CM NOW BRISK BR,2ND CXR CONFIRMS MID SVC, RELEASED FOR IMMEDIATE USE PER PROTOCOL TO ESTER WELCH.
[2018-12-17 11:59] LABS: HEMATOCRIT 30.5 % (37.0-47.0); HEMOGLOBIN 9.9 gm/dL (12.0-15.0)
[2018-12-17 12:31] LABS: CALCIUM 9.2 mg/dL (8.5-10.1); CREATININE 1.1 mg/dL (0.6-1.0); MAGNESIUM 1.5 mg/dL (1.8-2.4); POTASSIUM 3.2 mmol/L (3.5-5.1)
--- NOTE | 2018-12-17 17:14 | NUR ---
FA[place]ED CLINICAL [place] [facility] [place]CE[place]FIRMATION SPOKE WITH LESLIE IN ADM SHE WILL FOLLOW PT. DCP TO FOLLOW.
[2018-12-18] VITALS (23 sets, daily range): BP systolic 96–148; BP diastolic 55–82
[2018-12-18 01:46] LABS: HEMATOCRIT 30.2 % (37.0-47.0); HEMOGLOBIN 9.7 gm/dL (12.0-15.0); MCH 27.2 pg (26.0-34.0); MCV 84.9 fL (80.0-100.0); RBC 3.56 mil/uL (4.20-5.00); RDW 15.8 % (10.5-14.5); WBC 5.7 thou/uL (4.0-11.0)
[2018-12-18 01:57] LABS: CALCIUM 8.4 mg/dL (8.5-10.1); CREATININE 1.1 mg/dL (0.6-1.0)
[2018-12-18 02:02] LABS: POTASSIUM 2.8 mmol/L (3.5-5.1)
[2018-12-18 05:32] LABS: BE(vivo) 10.1 mmol/L (-2 to +3); HCO3 33.9 mmol/L (22.0-26.0); PCO2 42.7 mmHg (35.0-45.0); PO2 99.1 mmHg (80.0-100.0); pH 7.518 (7.360-7.450)
[2018-12-18 07:53] LABS: CALCIUM 8.6 mg/dL (8.5-10.1); POTASSIUM 3.1 mmol/L (3.5-5.1)
--- NOTE | 2018-12-18 07:58 | EKG ---
[address] [address] ELECTROCARDIOGRAM REPORT Name: TEODOROMARIELAVIRGIEKrista Joyce Room #: 245-P ADM IN M.R.#: [id number] Admission: 12/17/18 Attend Phys: Ferny Street MD Discharge: Date of : 61 Report #: [id number] THIS REPORT FOR: //name// [facility] ED Test Date: 2018-12-17 Test Time: 00:33:10 Pat Name: SABRINA RICKS Department: Room: [facility] Gender: F Reservoir Caretaker: TANYA : 1965 Requested By: Calvin Zelaya Order Number: [id number] MD: Carlton Winslow Measurements Intervals Louise Rate: 131 P: 50 SC: 203 QRS: 53 QRSD: 103 T: 232 QT: 299 QTc: 442 Interpretive Statements Sinus tachycardia Prolonged SC interval Abnormal R-wave progression, early transition Abnormal T, consider ischemia, diffuse leads Baseline wander in lead(s) II Compared to ECG 11/23/2018 01:14:52 Electronically Signed On 12-18-2018 7:58:46 CDT by Carlton Winslow [email or web address] <ELECTRONICALLY SIGNED> By: Carlton Winslow MD 12/18/18 0758 0033 0033 Carlton Winslow MD /EPI
--- NOTE | 2018-12-18 08:06 | EKG ---
[address] [address] ELECTROCARDIOGRAM REPORT Name: RAMBOVIRGIEKrista Joyce Room #: 245-P ADM IN M.R.#: [id number] Admission: 12/17/18 Attend Phys: Ferny Street MD Discharge: Date of : 61 Report #: [id number] THIS REPORT FOR: //name// [facility] Test Date: 2018-12-18 Test Time: 01:58:33 Pat Name: SABRINA RICKS Department: Room: 245 Gender: F Paunch Trimmer: chidi : 1965 Requested By: Anita Riddle Order Number: [id number] MD: Carlton Winslow Measurements Intervals Liberty Rate: 114 P: 258 OH: 160 QRS: 67 QRSD: 109 T: 55 QT: 404 QTc: 557 Interpretive Statements Sinus or ectopic atrial tachycardia Nonspecific T abnormalities, lateral leads Compared to ECG 11/23/2018 01:14:52 Electronically Signed On 12-18-2018 8:06:12 CDT by Carlton Winslow [email or web address] <ELECTRONICALLY SIGNED> By: Carlton Winslow MD 12/18/18 0806 0158 0158 Carlton Winslow MD /GILMA
[2018-12-18 12:29] LABS: BE(vivo) 9.3 mmol/L (-2 to +3); HCO3 34.9 mmol/L (22.0-26.0); PCO2 53.6 mmHg (35.0-45.0); PO2 100.2 mmHg (80.0-100.0); pH 7.432 (7.360-7.450); sO2 97.6 % (92.0-98.0)
--- NOTE | 2018-12-18 14:26 | 2DMMODE ---
[facility] [address] [place] [address] 2 D/M-MODE ECHOCARDIOGRAM Name: SABRINA RICKS Room #: 245-P ADM IN M.R.#: [id number] Admission: 12/17/18 Attend Phys: Ferny Street, Discharge: Date of : 61 Report #: [id number] THIS REPORT FOR: //name// APPROVED REPORT Study performed: 12/18/2018 13:42:46 EXAM: Limited 2D, Doppler, and color-flow Echocardiogram Patient Location: ICU Room #: [facility] Status: routine BSA: 2.74 HR: 107 bpm BP: 114/66 mmHg Rhythm: Tachycardia Other Information Study Quality: Adequate Technically limited study due to morbid obesity, limited movement. Indications Hypoxia. Hx: COPD, DM, HLP. (Complete echo done 12/06/18) Aortic Valve AoV Peak Stephen.: 1.54 m/s AO Peak Gr.: 9.47 mmHg Tricuspid Valve TR Peak Stephen.: 2.74 m/s TR Peak Gr.: 29.97 mmHg Left Ventricle The left ventricle is normal size. Mild concentric left ventricular hypertrophy. The left ventricular systolic function is normal. LVEF is 55%. Right Ventricle The right ventricle is normal size. The right ventricular systolic function is normal. Atria The left atrium size is normal. The right atrium size is normal. [facility] [address] [place] [address] 2 D/M-MODE ECHOCARDIOGRAM Name: SABRINA RICKS Room #: 245-P ADM IN M.R.#: [id number] Admission: 12/17/18 Attend Phys: Ferny Street, Discharge: Date of : 61 Report #: [id number] Aortic Valve The aortic valve is normal in structure. No aortic regurgitation is present. There is no aortic valvular stenosis. Mitral Valve The mitral valve is normal in structure. Trace mitral regurgitation. Tricuspid Valve The tricuspid valve is normal in structure. Trace tricuspid regurgitation. Estimated PAP is 30mmHg plus the right atrial pressure. Great Vessels IVC is not well visualized. Pericardium There is no pericardial effusion. <Conclusion> The left ventricle is normal size. Mild concentric left ventricular hypertrophy. The left ventricular systolic function is normal. The right ventricle is normal size. The left atrium size is normal. The aortic valve is normal in structure. Trace mitral regurgitation. Trace tricuspid regurgitation. Estimated PAP is 30mmHg plus the right atrial pressure. <ELECTRONICALLY SIGNED> By: Neel White MD 12/18/18 1426 1426 0533 Neel White MD /INF
[2018-12-18 15:21] LABS: MAGNESIUM 1.8 mg/dL (1.8-2.4); POTASSIUM 3.6 mmol/L (3.5-5.1)
--- NOTE | 2018-12-18 20:00 | NUR ---
PATIENT PROGRESSING TOWARDS OUTCOME GOALS EVIDENT BY SERUM MAGNESIUM LEVELS ARE WITHIN PARAMATERS, VSS MONITOR NSR TO ST, EXTUBATED AND PAIN LEVEL DECREASED WITH PAIN MEDS. O2 SAT 93 TO 94% WITH STRONG COUGH, NGT PATENT AND DRAINING THICK BILE DRAINAGE. PATIENT UPDATED TO THE POC AND REASSURANCE GIVEN.
[2018-12-19] VITALS (25 sets, daily range): BP systolic 126–179; BP diastolic 66–123
[2018-12-19 05:50] LABS: HEMATOCRIT 27.2 % (37.0-47.0); HEMOGLOBIN 8.7 gm/dL (12.0-15.0); MCH 27.7 pg (26.0-34.0); MCV 86.5 fL (80.0-100.0); RBC 3.14 mil/uL (4.20-5.00); RDW 15.8 % (10.5-14.5); WBC 5.7 thou/uL (4.0-11.0)
[2018-12-19 06:18] LABS: CALCIUM 8.2 mg/dL (8.5-10.1); CREATININE 0.8 mg/dL (0.6-1.0); POTASSIUM 3.8 mmol/L (3.5-5.1)
--- NOTE | 2018-12-19 07:00 | NUR ---
PT EXTUBATED YESTERDAY, NOW ON FACESHIELD AT 40% FIO2. PT EXTREMELY ANXIOUS OVERNIGHT. SUPERVISOR COMPUTER OPERATIONS CALLED AND ORDER FOR ATIVAN OBTAINED. PT CALMED DOWN SLIGHTLY, BUT SOON AFTER C/O ANXIETY AGAIN AND SAID SHE WAS HAVING A PANIC ATTACK WITH CHEST PAIN. ANOTHER ORDER FOR ATIVAN OBTAINED. PT REQUESTED MORPHINE FOR PAIN Q2H. AROUND 0300, PT BECAME DROWSY AND FELL ASLEEP FOR A FEW HOURS. PT WOKE AND REQUESTED PAIN MEDICATION AGAIN. MORPHINE GIVEN, BUT PT INFORMED THEY WOULD HAVE TO TALK TO PHYSICIAN DURING THE DAY ABOUT MORE ATIVAN D/T INCREASING DROWSINESS. WILL CONTINUE TO MONITOR.
--- NOTE | 2018-12-19 10:26 | NUR ---
WOUND CARE CONSULT; ASSESSMENT REVEALED A SKIN TEAR TO THE LLE LATERALLY. NO S/S OF INFECTION. THE AREA POSSIBLY WAS CONTAMINATED WITH URINE. RECOMMENDATION; XEROFORM TO THE WOUNDBED, COVER WITH A BOARDER FOAM M/W/F PRN RN PRESENT
--- NOTE | 2018-12-19 19:37 | NUR ---
PATIENT INTERMITTENTLY SHORT OF AIR WITH DESAT IN OXYGENATION INTO LOWER 80S. THIS WAS RELAYED TO DR. LOVE, HE EXPRESSED TO GIVE EXTRA TREATMENT. THEN DR. PERRY NOTIFIED, ORDERS RECEIVED, HE ROUNDED. THEN HE ROUNDED AND MORE ORDERS RECEIVED. LASIX GIVEN WITH OUTPUT DOCUMENTED. HER BREATHING WITH THE MEDICATIONS HAS IMPROVED. HOWEVER, SHE CONTINUES TO GET SHORT OF AIR WITH MOVEMENT, INCLUDING TURNED FROM SIDE TO SIDE. SHE REMAINS UPRIGHT WITH SLIGHT TURNS TO SIDES. SHE HAS HAD MANY BOWEL MOVEMENTS THIS EVENING WHERE SHE HAS BEEN REQUIRED TO BE ON HER SIDE DURING CLEAN UP. REPORT GIVEN TO VESSEL BUILDER RN. PATIENT PROGRESSING TOWARDS HER GOAL OF HAVING BOWEL MOVEMENTS, POTENTIALLY ADVANCING DIET, AND IMPROVING NUTRITION. HOWEVER, FROM A NURSING/PULMONARY STANDPOINT, PATIENT SLOW TO PROGRESS TOWARDS IMPROVED BREATHING.
[2018-12-20] VITALS (48 sets, daily range): BP systolic 69–195; BP diastolic 48–147
[2018-12-20 04:19] LABS: HEMATOCRIT 31.1 % (37.0-47.0); HEMOGLOBIN 9.9 gm/dL (12.0-15.0); MCH 27.5 pg (26.0-34.0); MCHC 31.7 g/dL (28.0-37.0); MCV 86.7 fL (80.0-100.0); RBC 3.58 mil/uL (4.20-5.00); RDW 16.2 % (10.5-14.5); WBC 7.6 thou/uL (4.0-11.0)
[2018-12-20 04:28] LABS: CALCIUM 8.3 mg/dL (8.5-10.1); CREATININE 0.8 mg/dL (0.6-1.0); POTASSIUM 3.6 mmol/L (3.5-5.1)
--- NOTE | 2018-12-20 15:12 | EKG ---
[address] [address] ELECTROCARDIOGRAM REPORT Name: SABRINA RICKS Room #: 245-P ADM IN M.R.#: [id number] Admission: 12/17/18 Attend Phys: Ferny Street MD Discharge: Date of : 61 Report #: [id number] THIS REPORT FOR: //name// [facility] Test Date: 2018-12-20 Test Time: 10:12:04 Pat Name: SABRINA RICKS Department: Room: [facility] Gender: F Gastroenterology Teacher: Satish KWONG : 1965 Requested By: Hiren Huynh Order Number: [id number] MD: Carlton Winslow Measurements Intervals Ayden Rate: 181 P: MI: QRS: 73 QRSD: 90 T: -66 QT: 261 QTc: 454 Interpretive Statements Atrial fibrillation with rapid V-rate Abnormal R-wave progression, early transition Repolarization abnormality, prob rate related Compared to ECG 12/18/2018 01:58:33 Early repolarization now present T-wave abnormality no longer present Electronically Signed On 12-20-2018 15:12:25 CDT by Carlton Winslow [email or web address] <ELECTRONICALLY SIGNED> By: Carlton Winslow MD 12/20/18 1512 1012 1012 Carlton Winslow MD /EPI
--- NOTE | 2018-12-20 15:41 | NUR ---
Case discussed with the care team. No weekend dc anticipated. Edis bardales updated. Will send updated clinical on Sunday. Will follow.
--- NOTE | 2018-12-20 19:32 | NUR ---
PT ALERT AND ORIENTED TIMES FOUR. VSS THIS MORNING. PT THEN WENT INTO AFIB/RVR MID MORNING. AMIODARONE GTT STARTED PT NOW NSR. PT EXTREMELY ANXIOUS FOR MOST PART OF THE SHIFT, PRN MEDICATIONS GIVEN WITH WITH LITTLE RELEIF. DR NOTIFED SEE MAY FOR MED CHANGES. NG TUBE REMOVED. SPEECH CONSULT DONE DIET ORDERED AND PT DID WELL WITH DINNER. SELBY AND RECTAL TUBE TO DD. FAMILY AT BEDSIDE THIS AFTERNOON. WILL CONTINUE TO MONITOR.
[2018-12-21] VITALS (35 sets, daily range): BP systolic 139–188; BP diastolic 70–116
[2018-12-21 03:15] LABS: HEMATOCRIT 32.2 % (37.0-47.0); HEMOGLOBIN 10.1 gm/dL (12.0-15.0); MCH 27.1 pg (26.0-34.0); MCHC 31.2 g/dL (28.0-37.0); MCV 86.6 fL (80.0-100.0); PLATELET COUNT 173 thou/uL (150-400); RBC 3.71 mil/uL (4.20-5.00); RDW 15.8 % (10.5-14.5); WBC 9.6 thou/uL (4.0-11.0)
[2018-12-21 03:28] LABS: ALBUMIN 2.8 g/dL (3.4-5.0); CALCIUM 8.3 mg/dL (8.5-10.1); CREATININE 0.8 mg/dL (0.6-1.0); TOTAL BILIRUBIN 0.6 mg/dL (<0.1-1.0); TOTAL PROTEIN 7.5 g/dL (6.4-8.2)
[2018-12-21 04:26] LABS: ABSOLUTE NEUTROPHILS 8.7 thou/uL (1.4-8.2)
--- NOTE | 2018-12-21 04:39 | NUR ---
ASSUMED PT CARE AT 1900. PT A/OX4, VERY ANXIOUS, VITAL SIGNS STABLE, WITH ELEBATED BP, ASSESSMENT CHARTED. PAIN ADEQAUTELY MANAGED WITH PAIN MEDICATION. PT GIVEN ANXIETY MEDICATION WHICH HELPED PT SLEEP FOR THE MOST PART OF THE NIGHT. PROGRESSING SLOWLY TOWARD PLAN OF CARE. PT CONTINUES TO BE ON AMIODARONE DRIP. WILL CONTINUE TO CLOSELY MONITOR.
[2018-12-21 05:19] LABS: BE(vivo) 10.1 mmol/L (-2 to +3); HCO3 37.8 mmol/L (22.0-26.0); PO2 80.3 mmHg (80.0-100.0); pH 7.356 (7.360-7.450); sO2 94.9 % (92.0-98.0)
--- NOTE | 2018-12-21 17:01 | NUR ---
ASSUMED CARE AT 1300, SHIFT ASSESSMENT DONE, MEDS GIVEN, VSS. REPORTED PAIN TOLEFT LOWER EXTERMITY, PRN MORPHINE GIVEN WITH SOME RELIEF. REFUSING Q2 TURNS. SELBY IN PLACE, HAD 2800 ML OUT. FECAL MANAGEMENT SYSTME IN PLACE. HAS A FACE MASK AND 3L NC. WILL CONTINUE TO ASSESS AND ASSIST WITH ADLs NEEDED.
[2018-12-22] VITALS (26 sets, daily range): BP systolic 157–193; BP diastolic 79–103
--- NOTE | 2018-12-22 03:53 | NUR ---
ASSUMED CARE AT 1900.ALERT.ABLE TO ANSWER QUESTIONS BUT WITH OCCASIONAL CONFUSION.REFUSED TO BE TURNED.RECTAL TUBE AND SELBY CATH TO DD.MONITOR SHOWS SR IN THE 60'S TO 70'S.ON O2 2L NC PLUS FACE SHIELD AT 60% FIO2.BP ELEVATED.PATIENT SLEPT MOST OF THE NIGHT.ON AMIODARONE GTT.NS AT 70 ML/HR INFUSING.WILL MONITOR AND CONTINUE POC.
[2018-12-22 04:56] LABS: HEMATOCRIT 32.5 % (37.0-47.0); HEMOGLOBIN 10.2 gm/dL (12.0-15.0); MCH 27.5 pg (26.0-34.0); MCHC 31.5 g/dL (28.0-37.0); MCV 87.1 fL (80.0-100.0); RBC 3.73 mil/uL (4.20-5.00); WBC 7.5 thou/uL (4.0-11.0)
[2018-12-22 05:09] LABS: CALCIUM 8.3 mg/dL (8.5-10.1); CREATININE 0.7 mg/dL (0.6-1.0); POTASSIUM 4.2 mmol/L (3.5-5.1)
--- NOTE | 2018-12-22 18:19 | NUR ---
Shift summary: Pt had a much better day. Oriented. Less anxious. Pain better controlled. Remains in SR. Amiodarone gtt at 0.5 mg/min. Afebrile. O2 40% face shield and 6L NC. Lungs coarse. Nonproductive cough. IPV tx started. Tolerating diet. Appetite much better. Wants to drink constantly. Pt requires feeding and close observation with meals. Smith with huge output after IV lasix this am. Pt continues on NS at 70ml/hr. ? whether maint. IVF could be dc'd now that pt taking large quantities po. and receiving Lasix 80mg IV daily. Fecal management system with increased leakage as stool becoming less liquid. Pt continues to refuse to allow it to be dc'd.
[2018-12-23] VITALS (8 sets, daily range): BP systolic 160–184; BP diastolic 85–95
[2018-12-23 05:14] LABS: HEMATOCRIT 32.6 % (37.0-47.0); HEMOGLOBIN 10.4 gm/dL (12.0-15.0); MCH 27.8 pg (26.0-34.0); MCHC 32.1 g/dL (28.0-37.0); MCV 86.7 fL (80.0-100.0); PLATELET COUNT 179 thou/uL (150-400); RBC 3.76 mil/uL (4.20-5.00); RDW 15.6 % (10.5-14.5); WBC 7.5 thou/uL (4.0-11.0)
[2018-12-23 05:18] LABS: BE(vivo) 15.1 mmol/L (-2 to +3); HCO3 44.1 mmol/L (22.0-26.0); PO2 63.8 mmHg (80.0-100.0); pH 7.358 (7.360-7.450); sO2 90.3 % (92.0-98.0)
[2018-12-23 05:19] LABS: PCO2 80.3 mmHg (35.0-45.0)
[2018-12-23 05:40] LABS: ALBUMIN 2.2 g/dL (3.4-5.0); CREATININE 0.6 mg/dL (0.6-1.0); POTASSIUM 4.1 mmol/L (3.5-5.1); TOTAL BILIRUBIN 0.4 mg/dL (<0.1-1.0); TOTAL PROTEIN 6.3 g/dL (6.4-8.2)
[2018-12-23 06:33] LABS: ABSOLUTE NEUTROPHILS 6.5 thou/uL (1.4-8.2); ANISOCYTOSIS SLIGHT; METAMYELOCYTES 2 %
--- NOTE | 2018-12-23 12:13 | NUR ---
WOUND CARE NOTE: wound healing LLE pink tissue present, scant drainage, cleansed w/ ns, xeroform applied, and covered w/ border foam drsg, pt cooperative w/ care, bar staff informed of care recommendations; cont same tx
--- NOTE | 2018-12-23 14:00 | NUR ---
PT VERY ANXIOUS..MEDICATED PER EMAR WITH FAIR RELIEF...
--- NOTE | 2018-12-23 16:31 | NUR ---
FAXED CLINICAL UPDATE TO [facility] SPOKE WITH LESLIE IN ADM SHE RECEIVED UPDATE. DCP TO FOLLOW.
[2018-12-23] MEDS ORDERED: ADVAIR HFA 230M12 GM INH (23:41)
[2018-12-23] MEDS ORDERED: LASIX 40 MG TAB40 M2 PO (23:48)
[2018-12-23] MEDS ORDERED: MUCINEX1200 MG PO (23:52)
[2018-12-23] MEDS ORDERED: POTASSIUM20 MEQ/15 PO (23:59)
[2018-12-24] MEDS ORDERED: LYRICA 75 MG CA75 MG PO
[2018-12-24] MEDS ORDERED: REQUIP 0.25 M0.25 M1 PO (00:02)
[2018-12-24] MEDS ORDERED: TRIGLIDE160 M1 PO (00:04)
[2018-12-24 03:46] VITALS: BP 153/88
[2018-12-24 04:18] VITALS: BP 153/88
--- NOTE | 2018-12-24 06:16 | NUR ---
PATIENT IS ALERT AND ORIENTED. PATIENT IS ANXIOUS. PATIENT IS Q2TURN. PATIENT IS INCONTIENT. PATIENT HAS A SELBY. FECAL MANAGEMENT SYSTEM DC DUE TO FORMED STOOL. PATIENT IS ON AMIO DRIP (THERAPUTIC). PATIENT IS NSR TO 1 DEGREE AVB. PATIENT IS ACHS ACCUCHECKS. PATIENT IS ON 4LNC WITH FACE SHEILD PER COMFORT. BIPAP HS NEEDS ENCOURAGEMENT. FLUIDS WERE DC DUE TO CRACKELS IN LUNGS AND APPROPIATE PO INTAKE. PATIENTS PAIN IS CONTROLLED WITH PAIN MEDICATION. PATIENT IS RESTING COMFORTABLY IN BED. WCM. PATIENT IS PROGRESSING TO GOALS. PATIENT REFUSES MOST TURNS.
[2018-12-24 07:58] VITALS: BP 170/105
--- NOTE | 2018-12-24 10:36 | NUR ---
ASSUMED CARE OF PT AT 0700 THIS SHIFT. PT HAS BEEN SOMEWHAT COOPERATIVE, PT HAS BEEN VERY ANXIOUS, HAS HAD CHRONIC PAIN IN HER LEG. PT IS CURRENTLY RESTING COMFORTABLY IN ROOM, EDUCATION WAS PROVIDED. PLAN OF CARE IS TO CONTINUE TO MONITOR PT CLOSELY.
[2018-12-24 11:44] VITALS: BP 148/90
--- NOTE | 2018-12-24 12:16 | NUR ---
DP faxed updates to [facility] and let eYssica at facility know. CARRIE asked Yessica if they want to bring patient back skilled, Yessica said yes, they will need to order a cpap for patient if that is in dc plans.
--- NOTE | 2018-12-24 13:08 | NUR ---
ASSUMED CARE. REPORT FROM YURI TAVAREZ, WHO HAD TO LEAVE. LONG TIME SPENT WITH PATIENT; EMOTIONAL SUPPORT OFFERED. TRACHEOSTOMY DISCUSSED. WILL CONTINUE TO FOLLOW CLOSELY.
--- NOTE | 2018-12-24 14:29 | NUR ---
KRISHNA reviewed chart and spoke with nursing and attending physician. Pt was transferred to from ICU. Therapy ordered today. financial planner faxed updates to Yessica at [facility], who states they would like to bring pt back using her skilled benefit. KRISHNA met with pt at bedside. Pt with questions about her discharge plan, as pulmonary had recommended pt to have trach placed. SW explained that should a trach be place, she would need to go to an LTAC until trach was established and stable, prior to returning to [facility]. Pt states she wants to just return to [facility] from here. SW explained reasoning for LTAC placement prior to returning to SNF/LTC level of care. Pt to discuss trach placement further with physicians. KRISHNA spoke with Yessica at [facility], who states that pt must have an established trach (30 days) prior to returning. Pt is not able to have trilogy/cpap/bipap connected to the trach. Awaiting further input from physicians at this time. KRISHNA is following to assist as needed with discharge planning.
[2018-12-24 15:08] VITALS: BP 141/91
[2018-12-24 19:35] VITALS: BP 148/86
[2018-12-25 00:20] VITALS: BP 137/79
--- NOTE | 2018-12-25 01:47 | NUR ---
ASSUMED CARE AT 1900. PT GIVEN PAIN MEDS BY OFF-GOING DAY RN AT 1915. PT WAS A&Ox4 BUT DROWSY AND FORGETFUL; AT 2029, PT HAD ALREADY FORGOTTEN SHE RECEIVED IV MORPHINE. PT HAD AUDIBLE CONGESTION WITH WET LUNG SOUNDS; CONGESTED COUGH, ENCOURAGING PT TO TAKE DEEP BREATHS AND COUGH BUT UNABLE TO CLEAR ANY SECRETIONS. PT SLEEPING FIRST FEW HOURS OF SHIFT, SO TRIED TO SWITCH PT TO BIPAP FROM RI ABOUT MIDNIGHT. SHE TOLERATED BIPAP MASK FOR ABOUT 30 MINUTES BEFORE PULLING AT IT AND TAKING IT OFF. MIDNIGHT ASSESSMENT, PT EVEN MORE WET AND COARSE SOUNDING. PT VERY DROWSY, LETHARGIC, SLURRING WORDS, LESS ORIENTED THAN START OF SHIFT. TALKED WITH NURSE PRACTIONER ABOUT LUNG SOUNDS AND HOW PT WOULD NOT LEAVE MASK ON. NUNO STATED MITTENS OR RESTRAINTS COULD BE USED TO KEEP PT FROM PULLING AT THE MASK, CHECK ABG'S IN THE AM AFTER PT HAS BEEN ON BIPAP FOR A FEW HOURS, AND TO GIVE IVP LASIX AT 0600 INSTEAD OF 0900. REITERATED TO PT HOW IMPORTANT IT WAS TO KEEP THE MASK ON; CAME TO AGREEMENT TO START WITH A GOAL OF LEAVING THE MASK ON UNTIL 0400. SWITCHED TO A FULL FACE MASK TO IMPROVE SEAL AND CO2 BLOW OFF. PT SO FAR HAS TOLERATED THIS MASK AND FALLEN ASLEEP. WILL CONTINUE TO MONITOR.
[2018-12-25 04:53] VITALS: BP 132/72
[2018-12-25 05:29] LABS: BUN 18 mg/dL (7-18); CALCIUM 8.4 mg/dL (8.5-10.1); CHLORIDE 98 mmol/L (98-107); CREATININE 0.7 mg/dL (0.6-1.0); GLUCOSE 117 mg/dL (74-106); HEMATOCRIT 36.1 % (37.0-47.0); HEMOGLOBIN 11.3 gm/dL (12.0-15.0); MCH 27.5 pg (26.0-34.0); MCHC 31.3 g/dL (28.0-37.0); MCV 87.8 fL (80.0-100.0); POTASSIUM 3.9 mmol/L (3.5-5.1); RBC 4.11 mil/uL (4.20-5.00); RDW 16.7 % (10.5-14.5); SODIUM 142 mmol/L (136-145); WBC 7.2 thou/uL (4.0-11.0)
[2018-12-25 05:53] LABS: BE(vivo) 15.1 mmol/L (-2 to +3); PO2 115.2 mmHg (80.0-100.0); sO2 97.9 % (92.0-98.0)
[2018-12-25 05:57] LABS: PCO2 74.4 mmHg (35.0-45.0)
[2018-12-25 06:04] LABS: CO2 > 45 mmol/L (21-32)
[2018-12-25 07:56] VITALS: BP 123/76
[2018-12-25 11:21] VITALS: BP 144/81
--- NOTE | 2018-12-25 14:59 | NUR ---
SW received call from pt regarding plans for possible trach placement. Pt states that she is concerned about not being able to return to [facility]. Per pt, she tolerated bipap for about 7 hours last night. KRISHNA spoke with Yessica at [facility], who states they can take pt back if she is on bipap with bipap settings. They are not able to accommodate a trilogy. SW updated pt. Pt states she will consider it. KRISHNA updated attending physician. SW is following to assist as needed with discharge planning.
[2018-12-25 16:45] VITALS: BP 119/74
[2018-12-25 20:21] VITALS: BP 160/91
--- NOTE | 2018-12-26 03:46 | NUR ---
Patient making slow progress towards outcome goals. Vital signs and rhythm stable. Drowsy, but oriented x 4 and able to state needs and desire. Cough miost non productive. Tolerating BIPAP fairly but has had episodes of patient removing mask other grayson on 4L/NC.
[2018-12-26 04:28] VITALS: BP 125/60
--- NOTE | 2018-12-26 06:01 | NUR ---
Back to 4L/NC per patient request. Tolerated BIPAP for about 5 hours.
[2018-12-26 06:12] LABS: CALCIUM 8.9 mg/dL (8.5-10.1); CREATININE 0.6 mg/dL (0.6-1.0); POTASSIUM 3.8 mmol/L (3.5-5.1)
[2018-12-26 07:41] VITALS: BP 139/83
--- NOTE | 2018-12-26 10:38 | NUR ---
WOUND CARE NOTE; WOUND LEFT POSTERIOR THIGH HEALED, NO DRSG NEEDED, WOUND CARE TX DC. STAFF TO CONT W/ TURNING Q2 HOURS AND ASSESS SKIN Q SHIFT, GRINDER OPERATOR SURFACE TOOL INFORMED
[2018-12-26 11:54] VITALS: BP 138/94
--- NOTE | 2018-12-26 12:55 | EKG ---
[address] [address] ELECTROCARDIOGRAM REPORT Name: SABRINA RICKS Room #: 353-P ADM IN M.R.#: [id number] Admission: 12/17/18 Attend Phys: Ferny Street MD Discharge: Date of : 61 Report #: [id number] THIS REPORT FOR: //name// [facility] Test Date: 2018-12-26 Test Time: 11:43:00 Pat Name: SABRINA RICKS Department: Room: 353 P Gender: F Bit Gatherer: Satish KWONG : 1965 Requested By: Ferny Street Order Number: [id number] MD: Carlton Winslow Measurements Intervals Wiley Rate: 104 P: 39 CA: 168 QRS: 66 QRSD: 94 T: 64 QT: 379 QTc: 499 Interpretive Statements Sinus tachycardia Probable left atrial enlargement Abnormal R-wave progression, early transition Probable left ventricular hypertrophy Compared to ECG 12/20/2018 10:12:04 Atrial fibrillation no longer present Early repolarization no longer present Electronically Signed On 12-26-2018 12:55:29 CDT by Carlton Winslow [email or web address] <ELECTRONICALLY SIGNED> By: Carlton Winslow MD 12/26/18 1255 1143 1143 Carlton Winslow MD /EPI
--- NOTE | 2018-12-26 14:43 | NUR ---
KRISHNA reviewed chart and spoke with nursing and attending physician. ENT consulted for trach placement. KRISHNA met with pt at bedside. Pt stated that she does not want the trach and wants to go directly back to [facility]. SW notified attending physician. Awaiting ENT consult. [facility] states they are able to accept pt back on bipap/cpap. Pt will need LTAC placement if trach is placed. KRISHNA is following to assist as needed with discharge planning.
[2018-12-26 17:32] VITALS: BP 123/85
--- NOTE | 2018-12-26 18:45 | NUR ---
Patient reports high anxiety and high levels of pain, partially releived by medication, all shift. 5L O2 NC while awake. 4L Bipap with sleep. pCO2 74.4 today. Tomorrow around 11am EMT MD Dr. Vargas will see patient regarding possiblie tracheostomy placement. Her lungs were diminished with coarse crackles. she was able to cough up mucus this afternoon. RN assisted patient with deep cough and breathe. Patient is working towards discharge goals.
[2018-12-26 19:43] VITALS: BP 141/89
[2018-12-27 04:43] VITALS: BP 121/80
--- NOTE | 2018-12-27 05:43 | NUR ---
PATIENTS CARES WERE ASSUMED AT SHIFT CHANGE. PATIENT WAS ASSESSED AND MEDS WERE PASSED. THIS PATIENT IS VERY NEEDY AND WANTES PAIN MEDS ALOT,NO MATTTER WHATENURSE WANTS HOURLY ROUNDING WAS DONE AND SIKERES TOOK COVRAGE. BED ALARM IS ON AND THE BED IS IN A LOW AND LOCK POSITION.
[2018-12-27 07:43] LABS: HEMATOCRIT 37.1 % (37.0-47.0); HEMOGLOBIN 11.9 gm/dL (12.0-15.0); MCH 27.4 pg (26.0-34.0); MCHC 32.1 g/dL (28.0-37.0); MCV 85.5 fL (80.0-100.0); RBC 4.34 mil/uL (4.20-5.00); WBC 8.4 thou/uL (4.0-11.0)
[2018-12-27 07:44] VITALS: BP 141/80
[2018-12-27 07:45] LABS: CALCIUM 9.4 mg/dL (8.5-10.1); CREATININE 0.7 mg/dL (0.6-1.0); POTASSIUM 4.2 mmol/L (3.5-5.1)
[2018-12-27 11:47] VITALS: BP 142/90
--- NOTE | 2018-12-27 14:53 | NUR ---
KRISHNA reviewed chart and spoke with nursing and attending physician. ENT met with pt earlier today. No plan for trach placement at this time. Pt had CT of sinuses. Pt has a deviated septum and plan for surgery on Sunday, per nursing. KRISHNA met with pt at bedside to discuss. Pt states that she does not want a trach unless it is absolutely necessary. And pt is wanting to return directly to [facility] when discharged. No weekend discharge planned. KRISHNA updated project coordinator rn at [facility], who will come see pt on Sunday. KRISHNA is following to assist as needed with discharge planning.
[2018-12-27 15:15] VITALS: BP 129/78
[2018-12-27 19:47] VITALS: BP 118/81
--- NOTE | 2018-12-27 21:21 | NUR ---
PATIENT ALERT AND ORIENTED AND COOPERATIVE WITH PLAN OF CARE. PATIENT MET WITH ENT AND HAD CT OF HEAD AND MAY HAVE SURGERY ON SUNDAY TO BREATH BETTER. ENT INDICATED TRACH. SHOULD BE LAST OPTION. PATIENT AGREED WITH ENT. PATIENT HAD 4 LOOSE STOOLS. PATIENT CALL STAFF FREQUENTLY FOR NEEDS AND REQUESTS PRN MEDS AT THE PRN TIME FRAME INDICATED AND GETS UPSET IF SHE DOES NOT GET THEM SOONER.
--- NOTE | 2018-12-28 01:26 | NUR ---
ASSESSMENT: PT REMAIN ALERT AND ORIENT TIMES THREE. VERY NEEDY AND CONTINUES TO REQUEST THAT HER LEFT LEG BE REPOSITONED ALMOST EVERY 5 MINS. REQUIP IS BEING HELD AT THIS TIME. PRN PAIN MEDICATONS GIVEN WITH PARTIAL RELIEF. SELBY PATENT. DID NOT TOLERATE THE BIPAP TONIGHT NO LONGER THAN 15 MINS. RETURNED TO NC AT 2 LITERS. SR PER MONITOR. SLOW PROGRESS TOWARDS DC GOALS, WILL CONTINUE TO MONITOR.
[2018-12-28 04:11] VITALS: BP 149/85
[2018-12-28 04:12] VITALS: BP 149/85
[2018-12-28 06:06] LABS: CALCIUM 9.2 mg/dL (8.5-10.1); CREATININE 0.9 mg/dL (0.6-1.0); POTASSIUM 3.7 mmol/L (3.5-5.1)
--- NOTE | 2018-12-28 07:51 | HC ---
[facility] [place] [address] CONSULTATION Name: SABRINA RICKS Room #: 353-P ADM IN M.R.#: [id number] Admission: 12/17/18 Attend Phys: Ferny Street MD Discharge: Date of : 61 Report #: [id number] THIS REPORT FOR: //name// CC: FAM unknown Ferny Tom DATE OF SERVICE: 12/26/2018 REASON FOR CONSULTATION: Obstructive sleep apnea and inability to use CPAP. HISTORY OF PRESENT ILLNESS: The patient is a 53-year-old female who has had problems with obstructive sleep apnea. She has tried BiPAP 2 years ago and was unsuccessful and she is not compliant with BiPAP at home. Current BiPAP settings are at 14/6. She feels very claustrophobic and does not feel like she can get the mask on her face. She was admitted to the hospital on the of last month with hemoptysis and pneumonia. Chest x-ray that showed fluid. She has a history of DVT as well with IVC filter, chronic knee pain, lower abdominal pain. I have been asked to evaluate her for her CPAP intolerance. PAST MEDICAL HISTORY: Significant for respiratory failure, pneumonia, septicemia, chronic abdominal pain, hyperglycemia, hypoalbuminemia, hypomagnesemia, morbid obesity, hypercapnia. PREVIOUS SURGICAL HISTORY: Partial colectomy, IVC filter placement, right lower extremity amputation. ALLERGIES: AMINOGLYCOSIDES, CLINDAMYCIN, PENICILLIN, VANCOMYCIN, AVELOX. SOCIAL HISTORY: She has been living in a nursing care facility over the last 12 years. She has been moved from one facility to other. Most recently living at [place]. FAMILY HISTORY: Noncontributory to this problem. REVIEW OF SYSTEMS: At this time, significant for anxiety. PHYSICAL EXAMINATION: GENERAL: She is a well-developed female who is in no apparent distress. She is resting semi-supine in bed with nasal cannula oxygen in place. Speaking in full sentences. HEENT: Head normocephalic, atraumatic. Pupils equal, round, react to light. Nasal, she has severe septal deviation to the right. She is mouth breathing throughout this entire exam and says that she has been since all of her life. Oral cavity: She is edentulous. She has elongated palate. Tonsils are present, but not enlarged. [address] [address] CONSULTATION Name: SABRINA RICKS Room #: 353-P ADM IN M.R.#: [id number] Admission: 12/17/18 Attend Phys: Ferny Street MD Discharge: Date of : 61 Report #: [id number] NECK: No palpable adenopathy. Trachea is midline. No crepitation. IMPRESSION: Obstructive sleep apnea with CPAP intolerance and anxiety. PLAN: The goal is for her to be able to ventilate and breathing offer CO2 adequately as well as maintain oxygen saturation. Discussed different options for care. Her best option would be to use CPAP as she is currently unable to tolerate a full face mask. Nasal mask would be more likely to be tolerated, but she is obstructed from the nasal airway perspective secondary to septal deviation. We did discuss different treatment options for airway enlargement, beginning at the tip of her nose down to her trachea, the last of which would be tracheotomy. Prior to that, fixing her upper airway obstruction would be of benefit. We will obtain a CT scan of her airway including of her nose and sinuses and evaluate how severe septal deviation is impacting her airway. She is going to try Afrin spray tonight and see if she can tolerate the nasal cannula that's why the nasal mask with decongestion. We will proceed accordingly. <ELECTRONICALLY SIGNED> By: Vazquez Vargas MD 12/28/18 0751 1226 1242 Vazquez Vargas MD /nt
[2018-12-28 07:52] VITALS: BP 120/79
[2018-12-28 11:46] VITALS: BP 114/81
[2018-12-28 15:04] VITALS: BP 114/71
--- NOTE | 2018-12-28 16:18 | NUR ---
pt is A&OX3, PT is off BIPAP at daytime,pt is continuing o2 3-4 L/MIN/NC, PT denies sob with o2 3L/MIN/NC by this time, but pt requests medications for R AKA pain and anxiety, pt stays in [facility], ENT has seeing pt today, plan possible spetoplasty surgery to improve ventilation in next week.
[2018-12-28 19:15] VITALS: BP 121/81
[2018-12-29 04:22] VITALS: BP 121/78
--- NOTE | 2018-12-29 04:30 | NUR ---
ASSUMED PT CARE AT 1900 WITH NO SIGN OF DISTRESS NOTED IN PT. PT IS ALERT AND ORIENTED. PT IS LAYING IN BED RESTING. ASSESSMENT COMPLETED AND CHARTED. SCHEDULED MEDS ADMINISTERED TO PATIENT. PT TOLERATED PO INTAKE. PT IS STABLE PAIN MEDS ADMINISTERED NEED. NO FURTHER NEEDS REQUESTED AT THIS TIME.
[2018-12-29 07:59] VITALS: BP 116/76
[2018-12-29 10:45] LABS: CREATININE 0.9 mg/dL (0.6-1.0); POTASSIUM 3.5 mmol/L (3.5-5.1)
[2018-12-29 11:39] VITALS: BP 126/73
[2018-12-29 15:35] VITALS: BP 128/71
--- NOTE | 2018-12-29 18:35 | NUR ---
Patient continued 3L of O2 via nasal cannula today, titrating to 2L. Patient continued to be anxious and required frequent interventions. Septal surgery is scheduled for tomorrow- NPO after MN. Patient is slowly working towards goals.
[2018-12-29 19:42] VITALS: BP 124/83
[2018-12-30] VITALS (8 sets, daily range): BP systolic 105–145; BP diastolic 68–79
--- NOTE | 2018-12-30 04:19 | NUR ---
PATIENT IS ALERT AND ORIENTED. PATIENT IS Q2TURN PATIENT REFUSES TURNS. PATIENT HAS A SELBY. PATIENT HAS A R AKA. PATIENT IS NSR ON TELE. PATIENT IS ON 2L NC AND BIPAP HS PATIENT WORE BIPAP ALL NIGHT. PATIENT IS ACHS ACCUCHECKS PER DIABETES. PATIENT IS NPO SENSE MIDNIGHT FOR SURGERY IN AM. PATIENTS PAIN IS TREATED WITH PAIN MEDICATION. PATIENT IS FROM [facility]. PATIENT IS RESTING COMFORTABLY IN BED. [facility]. PATIENT IS PROGRESSING TO GOALS.
--- NOTE | 2018-12-30 10:38 | NUR ---
KRISHNA reviewed chart and spoke with nursing. Pt just returned to unit from OR. Pt had surgery this morning per ENT. KRISHNA updated patient services coordinator at [facility], who will come see pt later today. Pt has been wearing bipap at night. Plan is for pt to return to [facility] with bipap. KRISHNA is following to assist as needed with discharge planning.
[2018-12-30 12:11] LABS: HEMATOCRIT 36.2 % (37.0-47.0); HEMOGLOBIN 11.5 gm/dL (12.0-15.0); MCH 27.6 pg (26.0-34.0); MCHC 31.8 g/dL (28.0-37.0); MCV 86.8 fL (80.0-100.0); RBC 4.16 mil/uL (4.20-5.00); RDW 17.4 % (10.5-14.5); WBC 7.3 thou/uL (4.0-11.0)
[2018-12-30 12:16] LABS: CALCIUM 9.1 mg/dL (8.5-10.1); CREATININE 0.9 mg/dL (0.6-1.0); MAGNESIUM 1.4 mg/dL (1.8-2.4); POTASSIUM 3.7 mmol/L (3.5-5.1)
--- NOTE | 2018-12-30 16:04 | NUR ---
Patient returned from surgery this am. She reported pain and exhibited anxiety through day shift. Patient was medicated per doctor orders. Patient is slowly working towards discharge goals.
--- NOTE | 2018-12-30 23:24 | NUR ---
DURING HOURLY ROUNDING, AT 2300 LEFT NARE HAS BEEN BLEEDING, BRIGHT RED IN COLOR. SPRAYED AFRIN IN LEFT NARE, WILL CONTINUE TO MONITOR. PT SLEEPING WITH NASAL CANULA IN MOUTH AND OXYGEN SATS ARE IN MID 90'S.
[2018-12-31 03:50] VITALS: BP 119/70
[2018-12-31 05:16] LABS: HEMATOCRIT 34.6 % (37.0-47.0); HEMOGLOBIN 11.3 gm/dL (12.0-15.0); MCH 27.9 pg (26.0-34.0); MCHC 32.5 g/dL (28.0-37.0); MCV 85.8 fL (80.0-100.0); RBC 4.04 mil/uL (4.20-5.00); RDW 17.3 % (10.5-14.5); WBC 7.9 thou/uL (4.0-11.0)
[2018-12-31 05:30] LABS: CALCIUM 8.8 mg/dL (8.5-10.1); CREATININE 0.8 mg/dL (0.6-1.0); MAGNESIUM 1.4 mg/dL (1.8-2.4); POTASSIUM 3.5 mmol/L (3.5-5.1)
[2018-12-31 08:00] VITALS: BP 117/93
--- NOTE | 2018-12-31 08:32 | O ---
[facility] [place] [address] OPERATIVE REPORT Name: SABRINA RICKS Room #: 353-P ADM IN M.R.#: [id number] Admission: 12/17/18 Attend Phys: Ferny Street MD Discharge: Date of : 61 Report #: [id number] THIS REPORT FOR: //name// CC: FAM unknown Ferny Tom DATE OF SERVICE: 12/30/2018 PREOPERATIVE DIAGNOSES: Septal deviation, turbinate hypertrophy, chronic sphenoid sinusitis, acute sphenoid sinusitis, chronic mastoiditis, ceruminosis, conductive hearing loss, chronic otitis media. Obstructive sleep apnea. POSTOPERATIVE DIAGNOSES: Septal deviation, turbinate hypertrophy, chronic sphenoid sinusitis, acute sphenoid sinusitis, chronic mastoiditis, ceruminosis, conductive hearing loss, chronic otitis media. Obstructive sleep apnea. PROCEDURES: 1. Septoplasty. 2. Bilateral inferior turbinate submucosal resection. 3. Bilateral endoscopic sphenoidotomy. 4. Left myringotomy tube placement with microscopic ear exam. DESCRIPTION OF ILLNESS: The patient was brought to the operating room and placed in supine position. General anesthesia was obtained. Mask inhalation was provided. An oral endotracheal tube was inserted. The patient's left ear was examined microscopically. She has dense ceruminosis following the external auditory canal. This was debrided extensively. There is purulent material present medial to this on tympanic membrane. The external auditory canal was suctioned. Myringotomy was performed in the anterior inferior quadrant of the tympanic membrane. Mucoid material was removed from the middle ear space. Collar button tube was placed through the myringotomy. Ciprofloxacin drops were placed in the external auditory canal on the left, 1% lidocaine with 1:100,000 epinephrine was infiltrated into the septal mucosa and inferior turbinates and posteriorly in the sphenoid face bilaterally. Afrin pledgets were placed intranasally. After anesthesia and decongestion achieved, the pledget is removed. The left nasal cavity is examined. She has a severe septal deviation to the right anteriorly, to the left posteriorly. A Edgar incision was made in the patient's left side. A submucoperichondrial plane is established on the left back to rostrum. A transcartilaginous incision was made 1 cm posterior to nasal spine and submucoperichondrial plane was established on the right. Deviated portions of cartilage and bone removed from the nasal septum. Quadrangular cartilage was morselized. Straight portions were used to reconstruct the septum. The [place] incision is closed. Left nasal cavity is examined with 0 degree nasal endoscope. The middle turbinate was lateralized. The sphenoid face is palpated with a straight shot. The sphenoidotomy is [address] [address] OPERATIVE REPORT Name: SABRINA RICKS Room #: 353-P [facility] IN M.R.#: [id number] Admission: 12/17/18 Attend Phys: Ferny Street MD Discharge: Date of : 61 Report #: [id number] performed after natural ostium is enlarged superiorly and inferiorly and laterally. An incision was made in the inferior turbinate head. A submucosal plane is established utilizing ____ straight shot is utilized to resect tissue on the medial and inferior aspect of the inferior turbinate. The turbinate is lateralized and incision site is cauterized. These procedure to begin in the patient's right side including sphenoidotomy and inferior turbinate submucous resection as described on the left. A basic stitch is placed in the septum. The patient is awoken from anesthesia and transferred to recovery room stable. She will remain in the hospital. I will see her tomorrow. She will be discharged when oxygenating and breathing through her nose has improved. <ELECTRONICALLY SIGNED> By: Vazquez Vargas MD 12/31/18 0832 [id number] Vazquez Vargas MD /nt
[2018-12-31 11:08] LABS: HCO3 33.6 mmol/L (22.0-26.0); PCO2 51.6 mmHg (35.0-45.0); PO2 89.6 mmHg (80.0-100.0); pH 7.432 (7.360-7.450); sO2 96.9 % (92.0-98.0)
[2018-12-31 12:00] VITALS: BP 120/77
--- NOTE | 2018-12-31 12:20 | NUR ---
dp sent updates to [facility] and called and left vm with Yessica at [facility]. Patient expected to dc today back to [facility], patient will transport stretcher and 4 L oxygen. Once dc paperwork is in, dp will set up transportation. CARRIE ordered chart copy from [facility]
[2018-12-31] MEDS ORDERED: LOPRESSOR25 PO (13:46)
[2018-12-31] MEDS ORDERED: OLANZAPINE ODT5 MG PO (13:53)
[2018-12-31] MEDS ORDERED: PREDNISONE 20 M20 MG PO (13:58)
[2018-12-31] MEDS ORDERED: SYNTHROID25 MC1 PO (14:04)
--- NOTE | 2018-12-31 15:41 | NUR ---
Assumed patient care at 0700. a/o x4. anxious. started netipot irrgation. able to cough out phlegm. needs pain med q4h. vss. 3-4l 02 vis mouth. progressing towards poc goals. will dc to snf soon.
== END 2018-12-31 16:03 | DRG 853 ==
LOC: ER 23:34 → EROBS 12-17 01:52 → ICU 12-17 01:52 → EROBS 12-17 01:52 → 3W 12-17 01:52 → ICU 12-17 05:14 → 3W 12-23 13:05
PROVIDERS: Emergency Medicine; Hospitalist; Internal Medicine; Internal Medicine Pulmonary Disease; Nurse Practitioner; Nurse Practitioner Acute Care; Nurse Practitioner Family; Otolaryngology Plastic Surgery within the Head & Neck; Pediatrics; ADMIT Internal Medicine
PROC: 5A1945Z Respiratory Ventilation, 24-96 Consecutive Hours (ICD-10-PCS; principal; 2018-12-17)
PROC: 02HV33Z Insertion of Infusion Device into Superior Vena Cava, Percutaneous Approach (ICD-10-PCS; principal; 2018-12-17)
PROC: 0BH17EZ Insertion of Endotracheal Airway into Trachea, Via Natural or Artificial Opening (ICD-10-PCS; principal; 2018-12-17)
PROC: 5A09357 Assistance with Respiratory Ventilation, Less than 24 Consecutive Hours, Continuous Positive Airway Pressure (ICD-10-PCS; 2018-12-18)
PROC: 0D9670Z Drainage of Stomach with Drainage Device, Via Natural or Artificial Opening (ICD-10-PCS; 2018-12-20)
PROC: 5A09357 Assistance with Respiratory Ventilation, Less than 24 Consecutive Hours, Continuous Positive Airway Pressure (ICD-10-PCS; 2018-12-24)
PROC: 5A09357 Assistance with Respiratory Ventilation, Less than 24 Consecutive Hours, Continuous Positive Airway Pressure (ICD-10-PCS; 2018-12-25)
PROC: 5A09357 Assistance with Respiratory Ventilation, Less than 24 Consecutive Hours, Continuous Positive Airway Pressure (ICD-10-PCS; 2018-12-26)
PROC: 5A09357 Assistance with Respiratory Ventilation, Less than 24 Consecutive Hours, Continuous Positive Airway Pressure (ICD-10-PCS; 2018-12-27)
PROC: 5A09357 Assistance with Respiratory Ventilation, Less than 24 Consecutive Hours, Continuous Positive Airway Pressure (ICD-10-PCS; 2018-12-28)
PROC: 5A09357 Assistance with Respiratory Ventilation, Less than 24 Consecutive Hours, Continuous Positive Airway Pressure (ICD-10-PCS; 2018-12-29)
PROC: 099X8ZZ Drainage of Left Sphenoid Sinus, Via Natural or Artificial Opening Endoscopic (ICD-10-PCS; 2018-12-30)
PROC: 09SM0ZZ Reposition Nasal Septum, Open Approach (ICD-10-PCS; 2018-12-30)
PROC: 5A09357 Assistance with Respiratory Ventilation, Less than 24 Consecutive Hours, Continuous Positive Airway Pressure (ICD-10-PCS; 2018-12-30)
PROC: 099670Z Drainage of Left Middle Ear with Drainage Device, Via Natural or Artificial Opening (ICD-10-PCS; 2018-12-30)
PROC: 099W8ZZ Drainage of Right Sphenoid Sinus, Via Natural or Artificial Opening Endoscopic (ICD-10-PCS; 2018-12-30)
PROC: 09BM0ZZ Excision of Nasal Septum, Open Approach (ICD-10-PCS; 2018-12-30)
DX: A41.51 Sepsis due to Escherichia coli [E. coli] (principal); J96.21 Acute and chronic respiratory failure with hypoxia; J69.0 Pneumonitis due to inhalation of food and vomit; J96.22 Acute and chronic respiratory failure with hypercapnia; K92.2 Gastrointestinal hemorrhage, unspecified; R04.2 Hemoptysis; J44.0 Chronic obstructive pulmonary disease with (acute) lower respiratory infection; N39.0 Urinary tract infection, site not specified; I50.22 Chronic systolic (congestive) heart failure; Z68.42 Body mass index [BMI] 45.0-49.9, adult; I13.0 Hypertensive heart and chronic kidney disease with heart failure and stage 1 through stage 4 chronic kidney disease, or unspecified chronic kidney disease; I42.9 Cardiomyopathy, unspecified; K56.690 Other partial intestinal obstruction; G47.33 Obstructive sleep apnea (adult) (pediatric); G89.29 Other chronic pain; F09 Unspecified mental disorder due to known physiological condition; I48.91 Unspecified atrial fibrillation; E03.9 Hypothyroidism, unspecified; G40.909 Epilepsy, unspecified, not intractable, without status epilepticus; F41.1 Generalized anxiety disorder; N18.9 Chronic kidney disease, unspecified; F32.9 Major depressive disorder, single episode, unspecified; E78.5 Hyperlipidemia, unspecified; E11.22 Type 2 diabetes mellitus with diabetic chronic kidney disease; E66.01 Morbid (severe) obesity due to excess calories; Z79.82 Long term (current) use of aspirin; Z79.899 Other long term (current) drug therapy; Z88.8 Allergy status to other drugs, medicaments and biological substances; Z79.891 Long term (current) use of opiate analgesic; Z86.718 Personal history of other venous thrombosis and embolism; Z85.038 Personal history of other malignant neoplasm of large intestine; Z88.1 Allergy status to other antibiotic agents; Z88.0 Allergy status to penicillin; Z91.013 Allergy to seafood; Z89.611 Acquired absence of right leg above knee; Z79.1 Long term (current) use of non-steroidal anti-inflammatories (NSAID); Z90.49 Acquired absence of other specified parts of digestive tract; Z89.511 Acquired absence of right leg below knee; Z79.01 Long term (current) use of anticoagulants; J01.30 Acute sphenoidal sinusitis, unspecified
CPT/HCPCS: 10078; 10879; 27000; 50010; 50101; 50386; 50398; 51305; 53035; 56527; 56528; 56635; 62110; 62900; 70005

== ENCOUNTER 2019-04-05 08:10 | Emergency (ER) | payer OTHER ==
[~2019-04-05] VITALS: Ht 185.4 cm; Wt 158.8 kg
[~2019-04-05 08:10] MED LIST changes: +LASIX 40 MG TAB40 M2 PO; +MUCINEX1200 MG PO; +OLANZAPINE ODT5 MG PO; +POTASSIUM20 MEQ/15 PO; +PREDNISONE 20 M20 MG PO; +REQUIP 0.25 M0.25 M1 PO
[2019-04-05 08:39] LABS: URINE BILIRUBIN NEGATIVE (Negative); URINE BLOOD NEGATIVE (Negative); URINE CLARITY SL CLOUDY; URINE COLOR YELLOW; URINE GLUCOSE-RANDOM* NEGATIVE (Negative); URINE KETONES NEGATIVE (Negative); URINE LEUKOCYTES-REFLEX 3+ (Negative); URINE NITRITE-REFLEX NEGATIVE (Negative); URINE PROTEIN (DIPSTICK) NEGATIVE (Negative)
[2019-04-05 08:52] LABS: ABSOLUTE NEUTROPHILS 2.9 thou/uL (1.4-8.2); BASOPHILS 1.4 % (0.0-2.0); EOSINOPHILS 0.3 % (0.0-3.0); HEMATOCRIT 39.1 % (37.0-47.0); HEMOGLOBIN 12.4 gm/dL (12.0-15.0); LYMPHOCYTES 24.1 % (24.0-44.0); MCHC 31.7 g/dL (28.0-37.0); MCV 88.2 fL (80.0-100.0); MONOCYTES 7.1 % (1.0-8.0); PLATELET COUNT 202 thou/uL (150-400); POLYS 67.1 % (36.0-66.0); RBC 4.43 mil/uL (4.20-5.00); RDW 15.4 % (10.5-14.5); WBC 4.4 thou/uL (4.0-11.0)
[2019-04-05 08:54] LABS: BACTERIA-REFLEX >30 Many /HPF (None Seen); CASTS None Seen /LPF (None Seen); SQUAMOUS 0-3 Few /LPF (0-3)
[2019-04-05 08:55] LABS: CRYSTALS None Seen /LPF (None Seen); URINE RBC 0-2 Rare /HPF (0-2); WBC CLUMPS Few (None Seen)
[2019-04-05 09:02] LABS: BE(vivo) 10.1 mmol/L (-2 to +3); HCO3 36.2 mmol/L (22.0-26.0); PCO2 VENOUS 54.9 mmHg (41.0-51.0); PO2 VENOUS 46.4 mmHg (35.0-45.0)
[2019-04-05 09:44] LABS: APTT 30.4 Seconds (24.5-32.8); INR 1.1; PROTIME 11.3 Seconds (9.3-11.4)
[2019-04-05] MEDS ORDERED: GLUCAGON EMERGEN1 MG INJECTION (09:58)
[2019-04-05] MEDS ORDERED: NEURONTIN600 MG PO (09:59)
[2019-04-05] MEDS ORDERED: PRILOSEC OTC20 MG PO (10:00)
[2019-04-05 10:59] LABS: ANION GAP 4 mmol/L (7-16); BUN 11 mg/dL (7-18); CALCIUM 10.2 mg/dL (8.5-10.1); CHLORIDE 93 mmol/L (98-107); CO2 36 mmol/L (21-32); CREATININE 0.8 mg/dL (0.6-1.0); GLUCOSE 103 mg/dL (74-106); POTASSIUM 4.1 mmol/L (3.5-5.1); SODIUM 133 mmol/L (136-145)
[2019-04-05 11:04] LABS: ALBUMIN 3.7 g/dL (3.4-5.0); MAGNESIUM 1.6 mg/dL (1.8-2.4); SGOT 21 U/L (15-37); SGPT 25 U/L (30-65); TOTAL BILIRUBIN 0.3 mg/dL (<0.1-1.0); TOTAL PROTEIN 8.1 g/dL (6.4-8.2); TROPONIN-I <0.06 ng/mL (<0.06)
[2019-04-05] MEDS ORDERED: MUCINEX DM ER1 EACH PO (11:19)
[2019-04-05] MEDS ORDERED: PREDNISONE 20 M20 MG PO (11:19)
[2019-04-05] MEDS ORDERED: DOXYCYCLINE 10100 MG PO (11:19)
[2019-04-05 13:06] VITALS: BP 132/74
--- NOTE | 2019-04-06 11:22 | EKG ---
[facility] [address] [facility] [place] [address] ELECTROCARDIOGRAM REPORT Name: SABRINA RICKS Room #: DEP KETTY Delaney#: [id number] Admission: 04/05/19 Attend Phys: Discharge: 04/05/19 Date of : 61 Report #: [id number] THIS REPORT FOR: //name// [facility] ED Test Date: 2019-04-05 Test Time: 09:00:26 Pat Name: SABRINA RICKS Department: Room: Gender: F Lead Infrastructure Architect: KATTY : 1965 Requested By: Calvin Zelaya Order Number: [id number] MD: Carlton Winslow Measurements Intervals [place] Rate: 89 P: 47 NE: 220 QRS: 56 QRSD: 106 T: 38 QT: 378 QTc: 460 Interpretive Statements Sinus rhythm Prolonged NE interval Probable left atrial enlargement Baseline wander in lead(s) V2 Compared to ECG 12/26/2018 11:43:00 Electronically Signed On 04-06-2019 11:22:13 CLICKING MACHINE OPERATOR by Carlton Winslow [email or web address] <ELECTRONICALLY SIGNED> By: Carlton Winslow MD 04/06/19 1122 9 9 Carlton Winslow MD /GILMA
== END 2019-04-05 13:05 ==
LOC: ER 08:10
PROVIDERS: Emergency Medicine
DX: J20.9 Acute bronchitis, unspecified (principal); J06.9 Acute upper respiratory infection, unspecified; J44.9 Chronic obstructive pulmonary disease, unspecified; N39.0 Urinary tract infection, site not specified; E83.42 Hypomagnesemia; I50.9 Heart failure, unspecified; E11.9 Type 2 diabetes mellitus without complications; E78.5 Hyperlipidemia, unspecified; E03.9 Hypothyroidism, unspecified; E66.01 Morbid (severe) obesity due to excess calories; F41.9 Anxiety disorder, unspecified; F32.9 Major depressive disorder, single episode, unspecified; Z68.42 Body mass index [BMI] 45.0-49.9, adult; Z90.49 Acquired absence of other specified parts of digestive tract; Z89.611 Acquired absence of right leg above knee; Z86.2 Personal history of diseases of the blood and blood-forming organs and certain disorders involving the immune mechanism; Z91.013 Allergy to seafood; Z88.0 Allergy status to penicillin; Z88.1 Allergy status to other antibiotic agents